=== PATIENT | female | born 1970 | race Caucasian/White ===

== ENCOUNTER 2017-04-23 15:41 | Emergency (ER) | payer OTHER ==
[2017-04-23] MEDS ORDERED: SODIUM CHLORIDE 0.9% 1,000 ML IV ONE (16:12)
[2017-04-23] MEDS ORDERED: ONDANSETRON 4 MG/2 ML VIAL IVP STA (16:12)
[2017-04-23] MEDS ORDERED: chlordiazePOXIDE 25 MG CAPSULE PO STA (16:13)
[2017-04-23] MEDS ORDERED: LORazepam 2 MG/ML VIAL IVP STA (16:13)
[2017-04-23] MEDS ORDERED: THIAMINE 100 MG TABLET PO STA (16:13)
[2017-04-23] MEDS ORDERED: FOLIC ACID 1 MG TABLET PO STA (16:13)
--- NOTE | 2017-04-23 17:27 | ED Physician Documentation ---
History of Present Illness - Stated complaint Stated Complaint: ALCOHOL WITHDRAWL - Chief complaint Chief Complaint: Abd Pain - History obtained from History obtained from: Patient - History of Present Illness Timing: Today - Additonal information Additional information: Patient is a 47 year old female with a history of alcohol abuse who is presenting to the emergency department for alcohol withdrawal. patient states that for the last 8 days she has been drinking excessively, normally a pint of vodka and 4 large beers. patient sates that she wants to quit drinking and last had a drink about 24 hours ago. Patient reports, that she felt shakey, weak and nauseated. Review of Systems Constitutional: denies: Fever, Chills Eyes: denies: Decreased vision, Photophobia Ears: denies: Ear pain, Drainage/discharge Nose: reports: Reviewed and negative Throat: reports: Reviewed and negative Cardiac: denies: Chest pain / pressure, Palpitations, Calf pain Respiratory: denies: Dyspnea, Cough, Wheezing GI: reports: Nausea. 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 - Present Medications Home Medications: Ambulatory Orders Medication Instructions Recorded Confirmed Bupropion HCl [Bupropion HCl Sr] 150 mg PO BID 07/20/15 04/23/17 Lorazepam [Ativan] 1 mg PO Q6H PRN #10 tablet 04/23/17 Ondansetron [Ondansetron Odt] 4 mg PO Q8H PRN #20 tab.rapdis 04/23/17 chlordiazePOXIDE [Librium] 25 mg PO Q6H #20 capsule 04/23/17 - Allergies Allergies/Adverse Reactions: Allergies Allergy/AdvReac Type Severity Reaction Status Date / Time No Known Drug Allergies Allergy Verified 04/23/17 15:49 - Social History Does the pt smoke?: No Smoking Status: Former smoker Does the pt drink ETOH?: Yes ETOH Use: Liquor Does the pt have substance abuse?: No - Immunizations Immunizations are current?: Yes PD ED PE NORMAL - Vitals Vital signs reviewed: Yes - General General: Alert and oriented X 3, Well developed/nourished - HEENT HEENT: Atraumatic, PERRL, Moist mucous membranes - Neck Neck: Supple, no meningeal sign, No JVD - Cardiac Cardiac: RRR, No murmur - Respiratory Respiratory: No respiratory distress, Clear bilaterally - Abdomen Abdomen: Soft, Non tender, Non distended - Derm Derm: Normal color, Warm and dry, No rash - Extremities Extremities: No deformity - Neuro Neuro: Other (minimal tremor) Results - Vitals Vitals: Vital Signs - 24 hr 04/23/17 04/23/17 15:44 17:48 Temperature 36.2 C L Heart Rate 81 80 Respiratory 18 16 Rate Blood Pressure 128/87 H 132/89 H O2 Saturation 99 100 Oxygen O2 Source Room air PD MEDICAL DECISION MAKING - ED course Complexity details: reviewed old records, reviewed results, re-evaluated patient , considered differential, d/w patient ED course: Patient was seen and examined at bedside. Patient's vital signs were within normal limits and there was minimal shaking. IV access was gained and patient was treated with IV fluids, ativan, librium, thiamine and folic acid. Patient responded well to the therapy. Patient had low CIWA score. A lengthy discussion was had with the patient and family concerning rehab and return instructions. Information was given for rehab. Patient and family felt comfortable with discharge and follow up planning. Patient was stable for discharge with outpatient follow up. Departure - Departure Disposition: 01 Home, Self Care Clinical Impression: Alcohol withdrawal Condition: Good Instructions: ED Withdrawal Alcohol Follow-Up: Fiordaliza Mckeon DO [Primary Care Provider] - Within 3 Days Prescriptions: chlordiazePOXIDE [Librium] 25 mg PO Q6H #20 capsule Lorazepam [Ativan] 1 mg PO Q6H PRN #10 tablet PRN Reason: Alcohol Withdrawal Ondansetron [Ondansetron Odt] 4 mg PO Q8H PRN #20 tab.rapdis PRN Reason: Nausea / Vomiting Comments: Your symptoms today are being caused by alcohol withdrawal. You will need to take the librium every 6 hours and then you can take the ativan in between for withdrawal symptoms. You should try to stay well hydrated and eat a regular diet. YOu should contact the detox center to establish inpatient care. If you are unable to get inpatient care or your symptoms worsen you may return to the emergency department at any time for new, worsening or uncontrollable symptoms. Discharge Date/Time: 04/23/17 17:49
[2017-04-23 17:49] VITALS: BP 132/89
== END 2017-04-23 17:49 | disposition home or self-care (01) ==
LOC: ED 15:41
DX: F10.239 Alcohol dependence with withdrawal, unspecified (principal)
CPT/HCPCS: 96361; 96374; 96375; 99283; 99284; A9270; J2060

== ENCOUNTER 2017-04-24 17:07 | Outpatient (CLI) | payer OTHER ==
[2017-04-24 18:50] LABS: BASOPHILS # (AUTO) 0.1 10^3/uL (0.0-0.1); BASOPHILS % (AUTO) 1.1 %; EOSINOPHILS # (AUTO) 0.1 10^3/uL (0.0-0.7); EOSINOPHILS % (AUTO) 1.3 %; HCT - HEMATOCRIT 40.3 % (37.0-47.0); HGB - HEMOGLOBIN 13.8 g/dL (12.0-16.0); LYMPHOCYTES # (AUTO) 1.6 10^3/uL (1.5-3.5); LYMPHOCYTES % (AUTO) 24.1 %; MEAN CORPUSCULAR HGB CONC 34.3 g/dL (32.0-36.0); MEAN CORPUSCULAR VOLUME 98.9 fL (81.0-99.0); MEAN PLATELET VOLUME 8.1 fL (7.9-10.8); MONOCYTES # (AUTO) 0.6 10^3/uL (0.0-1.0); MONOCYTES % (AUTO) 8.8 %; NEUTROPHILS # (AUTO) 4.3 10^3/uL (1.5-6.6); NEUTROPHILS % (AUTO) 64.7 %; RED BLOOD COUNT 4.07 10^6/uL (4.20-5.40); RED CELL DISTRIBUTION WIDTH 12.8 % (12.0-15.0); UNCORRECTED WHITE BLOOD COUNT 6.7 x10^3/uL; WHITE BLOOD COUNT 6.7 x10^3/uL (4.8-10.8)
[2017-04-24 19:02] LABS: BILIRUBIN,TOTAL 1.2 mg/dL (0.2-1.0); CALCIUM 9.6 mg/dL (8.5-10.3); CREATININE 0.6 mg/dL (0.4-1.0); POTASSIUM 3.3 mmol/L (3.5-5.0); TOTAL PROTEIN 6.7 g/dL (6.7-8.2)
== END 2017-04-24 17:08 | disposition home or self-care (01) ==
LOC: LAB.R 17:07
PROVIDERS: ATTEND Physician Assistant Medical
DX: F10.20 Alcohol dependence, uncomplicated (principal)
CPT/HCPCS: 80053; 85025

== ENCOUNTER 2017-06-26 16:56 | Outpatient (CLI) | payer OTHER | END 2017-06-26 16:57 | disposition critical access hospital (66) | LOC: EMS 16:56 | PROVIDERS: ATTEND Surgery | DX: R26.2 Difficulty in walking, not elsewhere classified (principal) | CPT/HCPCS: A0425; A0429 ==

== ENCOUNTER 2017-06-26 17:12 | Emergency (ER) | payer OTHER ==
--- NOTE | 2017-06-26 17:32 | ED Physician Documentation ---
History of Present Illness - Stated complaint Stated Complaint: OD - Chief complaint Chief Complaint: General - History obtained from History obtained from: Patient, EMS - History of Present Illness Timing: Today (She and her boyfriend (?) were kicked out of [employer] for shopliting and acting funny in the parking lot. Her friend says using suboxone. She is altered and not a useful historian. 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 - Present Medications Home Medications: Ambulatory Orders Medication Instructions Recorded Confirmed Bupropion HCl [Bupropion HCl Sr] 150 mg PO BID 07/20/15 04/23/17 Lorazepam [Ativan] 1 mg PO Q6H PRN #10 tablet 04/23/17 Ondansetron [Ondansetron Odt] 4 mg PO Q8H PRN #20 tab.rapdis 04/23/17 chlordiazePOXIDE [Librium] 25 mg PO Q6H #20 capsule 04/23/17 - Allergies Allergies/Adverse Reactions: Allergies Allergy/AdvReac Type Severity Reaction Status Date / Time No Known Drug Allergies Allergy Verified 04/23/17 15:49 - Social History Does the pt smoke?: No Smoking Status: Never smoker Does the pt drink ETOH?: Yes Does the pt have substance abuse?: No - Immunizations Immunizations are current?: Yes - POLST Patient has POLST: No PD ED PE NORMAL - Vitals Vital signs reviewed: Yes - General General: Other (Somnolent, arousable, NAD) - HEENT HEENT: Other (Small pupils.) - Neck Neck: Supple, no meningeal sign, No bony TTP - Cardiac Cardiac: RRR, No murmur - Respiratory Respiratory: No respiratory distress, Clear bilaterally - Abdomen Abdomen: Normal bowel sounds, Soft, Non tender - Back Back: No CVA TTP, No spinal TTP - Derm Derm: Normal color, Warm and dry - 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 Eye Opening: To Voice Motor: Obeys Commands Verbal: Confused GCS Score: 13 Results - Vitals Vitals: Vital Signs - 24 hr 06/26/17 17:20 Temperature 37.4 C Heart Rate 104 H Respiratory 22 Rate Blood Pressure 137/87 H O2 Saturation 96 Oxygen O2 Source Room air - Labs Labs: Laboratory Tests 06/26/17 06/26/17 06/26/17 17:35 17:35 17:35 WBC 4.8 RBC 3.92 L Hgb 13.0 Hct 38.1 MCV 97.1 MCH 33.0 H MCHC 34.0 RDW 13.3 Plt Count 385 MPV 6.9 L Neut # 2.0 Lymph # 2.4 [place] # 0.3 Eos # 0.0 Baso # 0.1 Absolute Nucleated RBC 0.00 Nucleated RBC % 0.1 Sodium 143 Potassium 3.6 Chloride 108 Carbon Dioxide 19 L Anion Gap 16.0 H BUN 12 Creatinine 0.7 Estimated GFR (MDRD) 90 Glucose 129 H Calcium 8.3 L Total Bilirubin 0.5 AST 48 H ALT 27 Alkaline Phosphatase 76 Total Protein 7.2 Albumin 4.5 Globulin 2.7 Albumin/Globulin Ratio 1.7 Lipase 13 L HCG, Quant < 0.60 Urine Color Urine Clarity Urine pH Ur Specific [place] Urine Protein Urine Glucose (UA) Urine Ketones Urine Occult Blood Urine Nitrite Urine Bilirubin Urine Urobilinogen Ur Leukocyte Esterase Urine RBC Urine WBC Ur Squamous Epith Cells Urine Bacteria Ur Microscopic Review Urine Culture Comments Salicylates < 6.0 Urine Opiates Screen Ur Oxycodone Screen Urine Methadone Screen Ur Propoxyphene Screen Acetaminophen < 10 L Ur Barbiturates Screen Ur Tricyclics Screen Ur Phencyclidine Scrn Ur Amphetamine Screen U Methamphetamines Scrn U Benzodiazepines Scrn Urine Cocaine Screen U Cannabinoids Screen Ethyl Alcohol 230.6 06/26/17 19:00 WBC RBC Hgb Hct MCV MCH MCHC RDW Plt Count MPV Neut # Lymph # [place] # Eos # Baso # Absolute Nucleated RBC Nucleated RBC % Sodium Potassium Chloride Carbon Dioxide Anion Gap BUN Creatinine Estimated GFR (MDRD) Glucose Calcium Total Bilirubin AST ALT Alkaline Phosphatase Total Protein Albumin Globulin Albumin/Globulin Ratio Lipase HCG, Quant Urine Color YELLOW Urine Clarity HAZY Urine pH 5.5 Ur Specific [place] >=1.030 H Urine Protein NEGATIVE Urine Glucose (UA) NEGATIVE Urine Ketones NEGATIVE Urine Occult Blood SMALL H Urine Nitrite NEGATIVE Urine Bilirubin NEGATIVE Urine Urobilinogen 0.2 (NORMAL) Ur Leukocyte Esterase NEGATIVE Urine RBC 0-5 Urine WBC 0-3 Ur Squamous Epith Cells MOD Squamous H Urine Bacteria Few Ur Microscopic Review INDICATED Urine Culture Comments NOT INDICATED Salicylates Urine Opiates Screen NEGATIVE Ur Oxycodone Screen NEGATIVE Urine Methadone Screen NEGATIVE Ur Propoxyphene Screen NEGATIVE Acetaminophen Ur Barbiturates Screen NEGATIVE Ur Tricyclics Screen NEGATIVE Ur Phencyclidine Scrn NEGATIVE Ur Amphetamine Screen NEGATIVE U Methamphetamines Scrn NEGATIVE U Benzodiazepines Scrn POSITIVE H Urine Cocaine Screen NEGATIVE U Cannabinoids Screen NEGATIVE Ethyl Alcohol PD MEDICAL DECISION MAKING - ED course ED course: 47-year-old woman presents with altered mental status from a grocery store, her mental status rapidly cleared to normal here. She was found to have alcohol and benzodiazepines on board. She was ambulate in the hallway without ataxia. She was coherent. Departure - Departure Disposition: Home, Self Care Clinical Impression: Alcohol intoxication Qualifiers: Complication of substance-induced condition: uncomplicated Qualified Code(s): F10.920 - Alcohol use, unspecified with intoxication, uncomplicated Condition: Good Record reviewed to determine appropriate education?: Yes Instructions: ED Alcohol Intoxication Comments: Call your doctor to arrange a follow-up appointment, make the next available appointment. In the interim, return anytime if worse or if new symptoms develop. Your blood pressure was elevated today on check into the emergency department. This does not mean that you have hypertension, it is a common phenomenon to come to the emergency department and have elevated blood pressure. I recommend that you see your primary care physician within the week to have it rechecked when you are feeling better.
[2017-06-26 17:40] LABS: BASOPHILS # (AUTO) 0.1 10^3/uL (0.0-0.1); BASOPHILS % (AUTO) 2.7 %; EOSINOPHILS % (AUTO) 0.6 %; LYMPHOCYTES # (AUTO) 2.4 10^3/uL (1.5-3.5); LYMPHOCYTES % (AUTO) 50.2 %; MEAN CORPUSCULAR VOLUME 97.1 fL (81.0-99.0); MEAN PLATELET VOLUME 6.9 fL (7.9-10.8); MONOCYTES # (AUTO) 0.3 10^3/uL (0.0-1.0); MONOCYTES % (AUTO) 5.4 %; NEUTROPHILS % (AUTO) 41.1 %; PLT - PLATELET COUNT 385 10^3/uL (130-450); RED BLOOD COUNT 3.92 10^6/uL (4.20-5.40); RED CELL DISTRIBUTION WIDTH 13.3 % (12.0-15.0); WHITE BLOOD COUNT 4.8 x10^3/uL (4.8-10.8)
[2017-06-26 17:55] LABS: ALBUMIN 4.5 g/dL (3.2-5.5); ALBUMIN/GLOBULIN RATIO 1.7 (1.0-2.2); ALKALINE PHOSPHATASE 76 IU/L (42-121); ALT ALANINE AMINOTRANSFERASE 27 IU/L (10-60); AST ASPARTATE AMINOTRANSFERASE 48 IU/L (10-42); BILIRUBIN,TOTAL 0.5 mg/dL (0.2-1.0); BUN - BLOOD UREA NITROGEN 12 mg/dL (6-20); CALCIUM 8.3 mg/dL (8.5-10.3); CARBON DIOXIDE - CO2 19 mmol/L (21-32); CHLORIDE 108 mmol/L (101-111); CREATININE 0.7 mg/dL (0.4-1.0); GFR - MDRD 90 (>89); GLUCOSE 129 mg/dL (70-100); LIPASE 13 U/L (22-51); SALICYLATE < 6.0 mg/dL; SODIUM 143 mmol/L (135-145); TOTAL PROTEIN 7.2 g/dL (6.7-8.2)
[2017-06-26 17:56] LABS: ACETAMINOPHEN < 10 ug/mL (10-30)
[2017-06-26 19:08] LABS: MUDS CUTOFF CONCENTRATIONS CUTOFF CONC BELOW:
[2017-06-26 19:14] LABS: BILIRUBIN,URINE NEGATIVE (NEGATIVE); GLUCOSE, URINE (UA) NEGATIVE (NEGATIVE); KETONES,URINE (UA) NEGATIVE (NEGATIVE); LEUKOCYTE ESTERASE, URINE NEGATIVE (NEGATIVE); NITRITE,URINE NEGATIVE (NEGATIVE); OCCULT BLOOD,URINE SMALL (NEGATIVE); PH,URINE 5.5 PH (5.0-7.5); PROTEIN,URINE NEGATIVE (NEGATIVE); UROBILINOGEN,URINE 0.2 (NORMAL) E.U./dL (NORMAL)
[2017-06-26 19:26] LABS: CLARITY,URINE HAZY (CLEAR); COCAINE SCREEN URINE NEGATIVE (NEGATIVE); METHAMPHETAMINES SCREEN, URINE NEGATIVE (NEGATIVE); OPIATE SCREEN, URINE NEGATIVE (NEGATIVE)
[2017-06-26 19:27] LABS: AMPHETAMINE SCREEN,URINE NEGATIVE (NEGATIVE); BENZODIAZEPINES SCREEN, URINE POSITIVE (NEGATIVE)
[2017-06-26 19:28] LABS: METHADONE SCREEN, URINE NEGATIVE (NEGATIVE); OXYCODONE SCREEN, URINE NEGATIVE (NEGATIVE); PROPOXYPHENE SCREEN, URINE NEGATIVE (NEGATIVE); TRICYCLIC ANTIDEPRESSANT,URINE NEGATIVE (NEGATIVE)
[2017-06-26 19:35] LABS: BACTERIA,URINE Few /HPF (None Seen); RBC,URINE 0-5 /HPF (0-5); SQUAMOUS EPITHELIAL CELL,UR MOD Squamous (<= Few)
[2017-06-26 20:36] VITALS: BP 119/84
[2017-06-26] MEDS ORDERED: ONDANSETRON ODT 4 MG TABLET TL STA (20:38)
== END 2017-06-26 20:43 | disposition home or self-care (01) ==
LOC: EDUNIT# → SUPCPDRO 17:12 → ED 17:12
DX: F10.920 Alcohol use, unspecified with intoxication, uncomplicated (principal); R03.0 Elevated blood-pressure reading, without diagnosis of hypertension
CPT/HCPCS: 36415; 80053; 80306; 80307; 80320; 80329; 81001; 83690; 84702; 85025; 99283; Q0162; 81003; 87086

== ENCOUNTER 2017-11-22 20:00 | Emergency (ER) | payer OTHER ==
--- NOTE | 2017-11-22 20:33 | ED Physician Documentation ---
PD HPI MHE - Stated complaint Stated Complaint: SI - Chief complaint Chief Complaint: MHE - History obtained from History obtained from: Patient, Family (patient's aunt (at bedside in ED)) - History of Present Illness Primary symptom: Suicidal ideation, Depression, Off meds Pain level now: 8 (headache) Contributing factors: Family (going through a divorce), Substance abuse - ETOH - Additional information Additional information: presents at urging of her aunt. patient is an alcoholic, cannot remember the last time she had 24 hours or more of sobriety (she says months, maybe years). Last drink was approximately 30 minutes prior to arrival tonight. She says she is feeling suicidal and has multiple plans as to how she would carry this out. also c/o generalized headache, which she says is c/w previous migraine headaches. she says she is not taking any prescription medications since 2017 because "I just don't care any more". Review of Systems Constitutional: reports: Reviewed and negative Cardiac: reports: Reviewed and negative Respiratory: reports: Reviewed and negative GI: reports: Reviewed and negative Neurologic: reports: Headache. 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 - Present Medications Home Medications: Ambulatory Orders Medication Instructions Recorded Confirmed Bupropion HCl [Bupropion HCl Sr] 150 mg PO BID 07/20/15 04/23/17 Lorazepam [Ativan] 1 mg PO Q6H PRN #10 tablet 04/23/17 Ondansetron [Ondansetron Odt] 4 mg PO Q8H PRN #20 tab.rapdis 04/23/17 chlordiazePOXIDE [Librium] 25 mg PO Q6H #20 capsule 04/23/17 Sertraline [Zoloft] 50 mg PO DAILY 11/22/17 11/22/17 chlordiazePOXIDE [Librium] 25 mg PO Q6H PRN #20 capsule 11/23/17 - Allergies Allergies/Adverse Reactions: Allergies Allergy/AdvReac Type Severity Reaction Status Date / Time No Known Drug Allergies Allergy Verified 11/22/17 20:15 - Social History Does the pt smoke?: No Smoking Status: Never smoker Does the pt drink ETOH?: Yes Does the pt have substance abuse?: No - Immunizations Immunizations are current?: Yes - POLST Patient has POLST: No PD ED PE NORMAL - Vitals Vital signs reviewed: Yes - General General: Alert and oriented X 3, Well developed/nourished, Other (wearing sunglasses in dark room. awake, alert, cooperative. answers quickly and appropriately. 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, No motor deficit, No sensory deficit, Normal speech Eye Opening: Spontaneous Motor: Obeys Commands Verbal: Oriented GCS Score: 15 Results - Vitals Vitals: Vital Signs - 24 hr 11/22/17 11/22/17 11/23/17 20:05 23:21 06:36 Temperature 36.4 C L 36.5 C 36.7 C Heart Rate 88 82 73 Respiratory 16 16 Rate Blood Pressure 118/92 H 112/72 125/75 O2 Saturation 97 96 97 11/23/17 11/23/17 10:59 13:09 Temperature 36.4 C L 36.0 C L Heart Rate 83 83 Respiratory 15 18 Rate Blood Pressure 141/85 H 148/95 H O2 Saturation 98 98 Oxygen O2 Source Room air - Labs Labs: Laboratory Tests 11/22/17 11/22/17 11/22/17 20:30 20:43 20:43 WBC 3.6 L RBC 3.91 L Hgb 13.8 Hct 40.4 MCV 103.3 H MCH 35.2 H MCHC 34.1 RDW 12.9 Plt Count 187 MPV 7.9 Neut # (Auto) 1.4 L Lymph # (Auto) 1.7 [place] # (Auto) 0.3 Eos # (Auto) 0.1 Baso # (Auto) 0.1 Absolute Nucleated RBC 0.01 Nucleated RBC % 0.2 Sodium 137 Potassium 4.0 Chloride 103 Carbon Dioxide 23 Anion Gap 11.0 BUN 6 Creatinine 0.7 Estimated GFR (MDRD) 90 Glucose 159 H Calcium 8.8 Total Bilirubin 1.0 AST 125 H ALT 68 H Alkaline Phosphatase 119 Total Protein 7.2 Albumin 4.2 Globulin 3.0 Albumin/Globulin Ratio 1.4 Lipase 52 H Urine Color YELLOW Urine Clarity CLEAR Urine pH 5.5 Ur Specific [place] 1.010 Urine Protein NEGATIVE Urine Glucose (UA) NEGATIVE Urine Ketones NEGATIVE Urine Occult Blood TRACE-LYSE Urine Nitrite NEGATIVE Urine Bilirubin NEGATIVE Urine Urobilinogen 0.2 (NORMAL) Ur Leukocyte Esterase NEGATIVE Ur Microscopic Review NOT INDICATED Urine Culture Comments NOT INDICATED Urine HCG, Qual NEGATIVE Salicylates < 6.0 Urine Opiates Screen NEGATIVE Ur Oxycodone Screen NEGATIVE Urine Methadone Screen NEGATIVE Ur Propoxyphene Screen NEGATIVE Acetaminophen < 10 L Ur Barbiturates Screen NEGATIVE Ur Tricyclics Screen NEGATIVE Ur Phencyclidine Scrn NEGATIVE Ur Amphetamine Screen NEGATIVE U Methamphetamines Scrn NEGATIVE U Benzodiazepines Scrn NEGATIVE Urine Cocaine Screen NEGATIVE U Cannabinoids Screen NEGATIVE Ethyl Alcohol 330.8 11/23/17 07:28 WBC RBC Hgb Hct MCV MCH MCHC RDW Plt Count MPV Neut # (Auto) Lymph # (Auto) [place] # (Auto) Eos # (Auto) Baso # (Auto) Absolute Nucleated RBC Nucleated RBC % Sodium Potassium Chloride Carbon Dioxide Anion Gap BUN Creatinine Estimated GFR (MDRD) Glucose Calcium Total Bilirubin AST ALT Alkaline Phosphatase Total Protein Albumin Globulin Albumin/Globulin Ratio Lipase Urine Color Urine Clarity Urine pH Ur Specific [place] Urine Protein Urine Glucose (UA) Urine Ketones Urine Occult Blood Urine Nitrite Urine Bilirubin Urine Urobilinogen Ur Leukocyte Esterase Ur Microscopic Review Urine Culture Comments Urine HCG, Qual Salicylates Urine Opiates Screen Ur Oxycodone Screen Urine Methadone Screen Ur Propoxyphene Screen Acetaminophen Ur Barbiturates Screen Ur Tricyclics Screen Ur Phencyclidine Scrn Ur Amphetamine Screen U Methamphetamines Scrn U Benzodiazepines Scrn Urine Cocaine Screen U Cannabinoids Screen Ethyl Alcohol 20.3 PD MEDICAL DECISION MAKING - ED course Complexity details: reviewed results, re-evaluated patient, considered differential, d/w patient, d/w family ED course: Case signed out/turned over to Dr. Figueroa at 7 AM 11/23, as patient is awaiting evaluation. - Sepsis Event Vital Signs: Vital Signs - 24 hr 11/22/17 11/22/17 11/23/17 20:05 23:21 06:36 Temperature 36.4 C L 36.5 C 36.7 C Heart Rate 88 82 73 Respiratory 16 16 Rate Blood Pressure 118/92 H 112/72 125/75 O2 Saturation 97 96 97 11/23/17 11/23/17 10:59 13:09 Temperature 36.4 C L 36.0 C L Heart Rate 83 83 Respiratory 15 18 Rate Blood Pressure 141/85 H 148/95 H O2 Saturation 98 98 Oxygen O2 Source Room air Departure - Departure Disposition: 01 Home, Self Care Clinical Impression: Suicidal ideation Alcohol intoxication Qualifiers: Complication of substance-induced condition: uncomplicated Qualified Code(s): F10.920 - Alcohol use, unspecified with intoxication, uncomplicated Condition: Good Instructions: ED Alcohol Intoxication Follow-Up: Fiordaliza Mckeon DO [Primary Care Provider] - Within 3 Days Prescriptions: chlordiazePOXIDE [Librium] 25 mg PO Q6H PRN #20 capsule PRN Reason: Alcohol Withdrawal Comments: Continue your medications as prescribed at home. Return if you worsen. Crisis Line and is available to talk to someone [email or web address] is also available to chat with someone online if you prefer. There are also many resources on this website and apps for your phone to help with your mental health You can also text the word START to [phone] to chat with someome via text. Discharge Date/Time: 11/23/17 13:10
[2017-11-22 20:43] LABS: MUDS CUTOFF CONCENTRATIONS CUTOFF CONC BELOW:
[2017-11-22 20:47] LABS: BILIRUBIN,URINE NEGATIVE (NEGATIVE); GLUCOSE, URINE (UA) NEGATIVE (NEGATIVE); KETONES,URINE (UA) NEGATIVE (NEGATIVE); LEUKOCYTE ESTERASE, URINE NEGATIVE (NEGATIVE); NITRITE,URINE NEGATIVE (NEGATIVE); OCCULT BLOOD,URINE TRACE-LYSE (NEGATIVE); PH,URINE 5.5 PH (5.0-7.5); PROTEIN,URINE NEGATIVE (NEGATIVE); UROBILINOGEN,URINE 0.2 (NORMAL) E.U./dL (NORMAL)
[2017-11-22 20:48] LABS: CLARITY,URINE CLEAR (CLEAR); HCG UR QUAL NEGATIVE
[2017-11-22] MEDS ORDERED: LORazepam 2 MG/ML VIAL IVP STA (20:50)
[2017-11-22] MEDS ORDERED: KETOROLAC 30 MG/ML VIAL IVP STA (20:50)
[2017-11-22] MEDS ORDERED: SODIUM CHLORIDE 0.9% 1,000 ML IV STA ×2 (20:50→23:07)
[2017-11-22 20:53] LABS: BASOPHILS # (AUTO) 0.1 10^3/uL (0.0-0.1); EOSINOPHILS # (AUTO) 0.1 10^3/uL (0.0-0.7); EOSINOPHILS % (AUTO) 1.6 %; HGB - HEMOGLOBIN 13.8 g/dL (12.0-16.0); LYMPHOCYTES # (AUTO) 1.7 10^3/uL (1.5-3.5); LYMPHOCYTES % (AUTO) 47.9 %; MEAN CORPUSCULAR HEMOGLOBIN 35.2 pg (27.0-31.0); MEAN CORPUSCULAR HGB CONC 34.1 g/dL (32.0-36.0); MEAN CORPUSCULAR VOLUME 103.3 fL (81.0-99.0); MEAN PLATELET VOLUME 7.9 fL (7.9-10.8); MONOCYTES # (AUTO) 0.3 10^3/uL (0.0-1.0); MONOCYTES % (AUTO) 9.5 %; NEUTROPHILS # (AUTO) 1.4 10^3/uL (1.5-6.6); PLT - PLATELET COUNT 187 10^3/uL (130-450); RED BLOOD COUNT 3.91 10^6/uL (4.20-5.40); RED CELL DISTRIBUTION WIDTH 12.9 % (12.0-15.0); WHITE BLOOD COUNT 3.6 x10^3/uL (4.8-10.8)
[2017-11-22 20:58] LABS: AMPHETAMINE SCREEN,URINE NEGATIVE (NEGATIVE); BENZODIAZEPINES SCREEN, URINE NEGATIVE (NEGATIVE); COCAINE SCREEN URINE NEGATIVE (NEGATIVE); METHADONE SCREEN, URINE NEGATIVE (NEGATIVE); METHAMPHETAMINES SCREEN, URINE NEGATIVE (NEGATIVE); OPIATE SCREEN, URINE NEGATIVE (NEGATIVE); OXYCODONE SCREEN, URINE NEGATIVE (NEGATIVE); PROPOXYPHENE SCREEN, URINE NEGATIVE (NEGATIVE); TRICYCLIC ANTIDEPRESSANT,URINE NEGATIVE (NEGATIVE)
[2017-11-22 21:05] LABS: ALBUMIN 4.2 g/dL (3.2-5.5); ALBUMIN/GLOBULIN RATIO 1.4 (1.0-2.2); ALKALINE PHOSPHATASE 119 IU/L (42-121); ALT ALANINE AMINOTRANSFERASE 68 IU/L (10-60); AST ASPARTATE AMINOTRANSFERASE 125 IU/L (10-42); BUN - BLOOD UREA NITROGEN 6 mg/dL (6-20); CALCIUM 8.8 mg/dL (8.5-10.3); CARBON DIOXIDE - CO2 23 mmol/L (21-32); CHLORIDE 103 mmol/L (101-111); CREATININE 0.7 mg/dL (0.4-1.0); GFR - MDRD 90 (>89); GLUCOSE 159 mg/dL (70-100); LIPASE 52 U/L (22-51); SALICYLATE < 6.0 mg/dL; SODIUM 137 mmol/L (135-145); TOTAL PROTEIN 7.2 g/dL (6.7-8.2)
[2017-11-22 21:07] LABS: ACETAMINOPHEN < 10 ug/mL (10-30)
[2017-11-22] MEDS ORDERED: PROMETHAZINE INJ 25 MG in SODIUM CHLORIDE 0.9% 50 ML IV STA (23:07)
[2017-11-22] MEDS ORDERED: MORPHINE 2 MG/ML SYRINGE IVP STA (23:07)
[2017-11-23] MEDS ORDERED: LORazepam 2 MG/ML VIAL IVP STA (06:48)
--- NOTE | 2017-11-23 12:38 | ED Physician Documentation ---
ED Addendum - Addendum Addendum: 11/23/17 12:36 Patient created safety plan with social work. Has good social support and will refrain from etoh. She currently is not feeling suicidal. Has a friend with her in the emergency department. We will prescribe her a small amount of Librium as she has been drinking heavily for the past several weeks. No history of delirium tremens. Patient is comfortable going home at this time and does contract for safety. Patient counseled regarding signs and symptoms for which I believe and urgent re-evaluation would be necessary. Patient with good understanding of and agreement to plan and is comfortable going home at this time This document was made in part using voice recognition software. While efforts are made to proofread this document, sound alike and grammatical errors may occur. Departure - Departure Disposition: 01 Home, Self Care Clinical Impression: Suicidal ideation Alcohol intoxication Qualifiers: Complication of substance-induced condition: uncomplicated Qualified Code(s): F10.920 - Alcohol use, unspecified with intoxication, uncomplicated Condition: Good Instructions: ED Alcohol Intoxication Follow-Up: Fiordaliza Mckeon DO [Primary Care Provider] - Within 3 Days Prescriptions: chlordiazePOXIDE [Librium] 25 mg PO Q6H PRN #20 capsule PRN Reason: Alcohol Withdrawal Comments: Continue your medications as prescribed at home. Return if you worsen. Crisis Line and is available to talk to someone [email or web address] is also available to chat with someone online if you prefer. There are also many resources on this website and apps for your phone to help with your mental health You can also text the word START to [phone] to chat with someome via text. Discharge Date/Time: 11/23/17 13:10
[2017-11-23 13:10] VITALS: BP 148/95
== END 2017-11-23 13:10 | disposition home or self-care (01) ==
LOC: ED 20:00
DX: F10.920 Alcohol use, unspecified with intoxication, uncomplicated (principal); R45.851 Suicidal ideations
CPT/HCPCS: 80053; 80306; 80307; 80320; 80329; 81003; 81025; 83690; 85025; 96361; 96365; 96375; 96376; 99284; J2060; J2270; J7040; 36415; 81001; 87086

== ENCOUNTER 2017-12-22 07:29 | Outpatient (CLI) | payer OTHER | END 2017-12-22 07:30 | disposition critical access hospital (66) | LOC: EMS 07:29 | PROVIDERS: ATTEND Surgery | DX: R10.30 Lower abdominal pain, unspecified (principal) | CPT/HCPCS: A0425; A0427 ==

== ENCOUNTER 2017-12-22 07:48 | Inpatient (IN) | payer OTHER ==
--- NOTE | 2017-12-22 07:52 | ED Physician Documentation ---
PD HPI ABD PAIN - Stated complaint Stated Complaint: ABD PX - History of Present Illness Timing - onset: Last night Timing - duration: Hours (8-10) Timing - details: Abrupt onset, Still present Quality: Aching, Sharp, Pain Location: RUQ, Epigastric Radiation: Upper back Improved by: Position (sitting up). No: Vomiting Worsened by: Eating, Breathing, Position, Palpation Associated symptoms: Nausea, Vomiting, Loss of appetite. No: Fever, Hematemesis , Diarrhea, Constipation, Melena, Near syncope / syncope Similar symptoms before: Has not had sx before Recently seen: Not recently seen Review of Systems Constitutional: denies: Fever, Chills, Myalgias Nose: denies: Rhinorrhea / runny nose, Congestion Throat: denies: Dental pain / toothache, Sore throat Cardiac: denies: Chest pain / pressure, Palpitations Respiratory: denies: Dyspnea, Cough, Wheezing GI: reports: Abdominal Pain, Nausea, Vomiting. denies: Abdominal Swelling, Constipation, Diarrhea, Bloody / black stool : denies: Dysuria, Frequency Skin: denies: Rash, Lesions Musculoskeletal: denies: Extremity swelling Neurologic: reports: Generalized weakness. 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 - Present Medications Home Medications: Ambulatory Orders Medication Instructions Recorded Confirmed Bupropion HCl [Bupropion HCl Sr] 150 mg PO BID 07/20/15 04/23/17 Sertraline [Zoloft] 50 mg PO DAILY 11/22/17 12/22/17 - Allergies Allergies/Adverse Reactions: Allergies Allergy/AdvReac Type Severity Reaction Status Date / Time No Known Drug Allergies Allergy Verified 11/22/17 20:15 - Social History Does the pt smoke?: No Smoking Status: Never smoker Does the pt drink ETOH?: Yes ETOH Use: Other (regular daily alcohol use) Does the pt have substance abuse?: No - Family History Family history: reports: Non contributory - Immunizations Immunizations are current?: Yes - POLST Patient has POLST: No PD ED PE NORMAL - Vitals Vital signs reviewed: Yes - General General: Alert and oriented X 3, Well developed/nourished, Other (appears in pain; slightly shaky.) - HEENT HEENT: PERRL (nonicteric), Pharynx benign - Neck Neck: Supple, no meningeal sign, No adenopathy - Cardiac Cardiac: RRR, No murmur - Respiratory Respiratory: Clear bilaterally - Abdomen Abdomen: Soft, Non distended, Other (liver slightly enlarged to palpation. Marked tenderness upper abd/epigastric area. Guarding and percussion tenderness present. ) - Female Female : Deferred - Rectal Rectal: Deferred - Back Back: No CVA TTP - Derm Derm: Normal color, Warm and dry - Extremities Extremities: No edema, No calf tenderness / cord - Neuro Neuro: Alert and oriented X 3, No motor deficit, Normal speech Results - Vitals Vitals: Vital Signs - 24 hr 12/22/17 12/22/17 07:50 09:28 Temperature 36.4 C L Heart Rate 64 66 Respiratory 18 20 Rate Blood Pressure 111/79 112/81 H O2 Saturation 100 100 Oxygen O2 Source Room air - Labs Labs: Laboratory Tests 12/22/17 12/22/17 12/22/17 08:04 08:12 08:12 WBC 9.3 RBC 3.75 L Hgb 13.2 Hct 37.7 MCV 100.7 H MCH 35.3 H MCHC 35.1 RDW 12.8 Plt Count 229 MPV 7.9 Neut # (Auto) 7.8 H Lymph # (Auto) 0.9 L [place] # (Auto) 0.5 Eos # (Auto) 0.0 Baso # (Auto) 0.1 Absolute Nucleated RBC 0.00 Nucleated RBC % 0.0 Sodium 136 Potassium 3.4 L Chloride 97 L Carbon Dioxide 29 Anion Gap 10.0 BUN 6 Creatinine 0.5 Estimated GFR (MDRD) 133 Glucose 157 H Calcium 8.5 Total Bilirubin 0.8 AST 68 H ALT 77 H Alkaline Phosphatase 98 Lactate Dehydrogenase 175 Total Protein 6.4 L Albumin 3.9 Globulin 2.5 Albumin/Globulin Ratio 1.6 Lipase 830 H Urine Color Urine Clarity Urine pH Ur Specific [place] Urine Protein Urine Glucose (UA) Urine Ketones Urine Occult Blood Urine Nitrite Urine Bilirubin Urine Urobilinogen Ur Leukocyte Esterase Ur Microscopic Review Urine Culture Comments Ethyl Alcohol 12/22/17 12/22/17 08:12 09:40 WBC RBC Hgb Hct MCV MCH MCHC RDW Plt Count MPV Neut # (Auto) Lymph # (Auto) [place]igg # (Auto) Eos # (Auto) Baso # (Auto) Absolute Nucleated RBC Nucleated RBC % Sodium Potassium Chloride Carbon Dioxide Anion Gap BUN Creatinine Estimated GFR (MDRD) Glucose Calcium Total Bilirubin AST ALT Alkaline Phosphatase Lactate Dehydrogenase Total Protein Albumin Globulin Albumin/Globulin Ratio Lipase Urine Color DARK YELLOW Urine Clarity CLEAR Urine pH 5.5 Ur Specific [place] >=1.030 H Urine Protein NEGATIVE Urine Glucose (UA) NEGATIVE Urine Ketones NEGATIVE Urine Occult Blood NEGATIVE Urine Nitrite NEGATIVE Urine Bilirubin NEGATIVE Urine Urobilinogen 0.2 (NORMAL) Ur Leukocyte Esterase NEGATIVE Ur Microscopic Review NOT INDICATED Urine Culture Comments NOT INDICATED Ethyl Alcohol < 5.0 PD MEDICAL DECISION MAKING - ED course Complexity details: reviewed results, considered differential (Her pain seems likely consistent with pancreatitis and her drinking history would go along with that. Her liver enzymes are minimally elevated and there alk phos is normal so does not sound like gallbladder pancreatitis. Her LDH, glucose, calcium are at good numbers so does not sound like critical or severe pancreatitis. Her symptoms and lipase are high enough that I do not think she will be treatable outpatient. She has received several doses of pain medicine here to again moderate control. She is no longer nauseous. I talked with the hospitalist who agrees to treat the patient in the hospital.), d/w patient, d/w commercial solar sales consultant (Dr. Avitia, Hospitalist) - Sepsis Event Vital Signs: Vital Signs - 24 hr 12/22/17 12/22/17 07:50 09:28 Temperature 36.4 C L Heart Rate 64 66 Respiratory 18 20 Rate Blood Pressure 111/79 112/81 H O2 Saturation 100 100 Oxygen O2 Source Room air Departure - Departure Disposition: [facility] DC/Xfer Clinical Impression: Abdominal pain Qualifiers: Abdominal location: upper abdomen, unspecified Qualified Code(s): R10.10 - Upper abdominal pain, unspecified Acute alcoholic pancreatitis Qualifiers: Acute pancreatitis complication: unspecified Qualified Code(s): K85.20 - Alcohol induced acute pancreatitis without necrosis or infection Condition: Stable Record reviewed to determine appropriate education?: Yes
[2017-12-22] MEDS ORDERED: MORPHINE 10 MG/ML VIAL IVP STA ×2 (08:04→09:21)
[2017-12-22] MEDS ORDERED: FAMOTIDINE 20 MG/50 ML 50 ML IV ONE (08:04)
[2017-12-22] MEDS ORDERED: KETOROLAC 15 MG/ML VIAL IVP STA (08:04)
[2017-12-22] MEDS ORDERED: SODIUM CHLORIDE 0.9% 1,000 ML IV ONE (08:04)
[2017-12-22 08:24] LABS: BASOPHILS # (AUTO) 0.1 10^3/uL (0.0-0.1); BASOPHILS % (AUTO) 0.8 %; EOSINOPHILS % (AUTO) 0.4 %; HGB - HEMOGLOBIN 13.2 g/dL (12.0-16.0); LYMPHOCYTES # (AUTO) 0.9 10^3/uL (1.5-3.5); LYMPHOCYTES % (AUTO) 9.6 %; MEAN CORPUSCULAR HEMOGLOBIN 35.3 pg (27.0-31.0); MEAN CORPUSCULAR HGB CONC 35.1 g/dL (32.0-36.0); MEAN CORPUSCULAR VOLUME 100.7 fL (81.0-99.0); MEAN PLATELET VOLUME 7.9 fL (7.9-10.8); MONOCYTES # (AUTO) 0.5 10^3/uL (0.0-1.0); MONOCYTES % (AUTO) 5.7 %; NEUTROPHILS # (AUTO) 7.8 10^3/uL (1.5-6.6); NEUTROPHILS % (AUTO) 83.5 %; PLT - PLATELET COUNT 229 10^3/uL (130-450); RED BLOOD COUNT 3.75 10^6/uL (4.20-5.40); RED CELL DISTRIBUTION WIDTH 12.8 % (12.0-15.0); WHITE BLOOD COUNT 9.3 x10^3/uL (4.8-10.8)
[2017-12-22 09:04] LABS: ALBUMIN 3.9 g/dL (3.2-5.5); ALBUMIN/GLOBULIN RATIO 1.6 (1.0-2.2); BILIRUBIN,TOTAL 0.8 mg/dL (0.2-1.0); CALCIUM 8.5 mg/dL (8.5-10.3); CREATININE 0.5 mg/dL (0.4-1.0); TOTAL PROTEIN 6.4 g/dL (6.7-8.2)
[2017-12-22 09:46] LABS: MUDS CUTOFF CONCENTRATIONS CUTOFF CONC BELOW:
[2017-12-22 09:54] LABS: BILIRUBIN,URINE NEGATIVE (NEGATIVE); GLUCOSE, URINE (UA) NEGATIVE (NEGATIVE); KETONES,URINE (UA) NEGATIVE (NEGATIVE); LEUKOCYTE ESTERASE, URINE NEGATIVE (NEGATIVE); NITRITE,URINE NEGATIVE (NEGATIVE); OCCULT BLOOD,URINE NEGATIVE (NEGATIVE); PH,URINE 5.5 PH (5.0-7.5); PROTEIN,URINE NEGATIVE (NEGATIVE); UROBILINOGEN,URINE 0.2 (NORMAL) E.U./dL (NORMAL)
[2017-12-22 09:58] LABS: CLARITY,URINE CLEAR (CLEAR)
[2017-12-22] MEDS ORDERED: LORazepam 2 MG/ML VIAL IVP STA (10:01)
[2017-12-22] MEDS ORDERED: HYDROmorphone 2 MG/ML VIAL IVP STA (10:01)
[2017-12-22 10:05] LABS: BENZODIAZEPINES SCREEN, URINE POSITIVE (NEGATIVE); METHADONE SCREEN, URINE POSITIVE (NEGATIVE); OPIATE SCREEN, URINE POSITIVE (NEGATIVE)
[2017-12-22 10:06] LABS: AMPHETAMINE SCREEN,URINE NEGATIVE (NEGATIVE); COCAINE SCREEN URINE NEGATIVE (NEGATIVE); METHAMPHETAMINES SCREEN, URINE NEGATIVE (NEGATIVE); OXYCODONE SCREEN, URINE NEGATIVE (NEGATIVE); PROPOXYPHENE SCREEN, URINE NEGATIVE (NEGATIVE); TRICYCLIC ANTIDEPRESSANT,URINE NEGATIVE (NEGATIVE)
[2017-12-22] MEDS ORDERED: ZOLPIDEM 5 MG TABLET PO PRN (10:43)
[2017-12-22] MEDS ORDERED: oxyCODONE 5 MG TABLET PO PRN (10:43)
[2017-12-22] MEDS ORDERED: PROMETHAZINE 25 MG/1 ML VIAL IM PRN (10:43)
[2017-12-22] MEDS ORDERED: PROCHLORPERAZINE 10 MG/2 ML VIAL IVP PRN (10:43)
[2017-12-22] MEDS ORDERED: ACETAMINOPHEN 325 MG TABLET PO PRN (10:43)
--- NOTE | 2017-12-22 10:53 | HISTORY & PHYSICAL EXAMINATION ---
Chief Complaint - Chief Complaint Chief Complaint: Abdominal Pain History of Present Illness - Admitted From Admitted From:: Emergency Department - History Obtained From Records Reviewed: Yes History obtained from: Patient Exam Limitations: None - History of Present Illness HPI Comment/Other: Patient is a 47-year-old female with a past medical history significant for severe depression with history of suicidal ideations and suicide attempt at the age of 18, and alcohol abuse who presented to the emergency department with a chief complaint of abdominal pain. The patient states that she woke this morning at around 5 AM and noticed she was having cramping in her abdomen. She states that the feeling became progressively worse over the course of the morning. She states the cramping turned into a stabbing pain. She states it was located in the epigastric area but was moving down into the right lower quadrant of her abdomen. She states that along with the pain she began developing nausea and around 7:30 in the morning the pain became severe 10 out of 10. She states that that point it was a ripping/shooting pain that was radiating into her back. She states that she had a hard time taking a deep breath as it would exacerbate the pain. She states that this point she began having vomiting. The patient also became lightheaded and felt as though she was going to pass out. She states the pain was so severe that she was on the floor crunched up in the position. The patient denies any fevers, diarrhea, constipation. She denies any chest pain, cough or shortness of breath. The patient denies any urinary urgency, urinary frequency or dysuria. She denies any blood in her stools or bloody urine. The patient does admit to drinking daily. She states that she drinks about 4 tall cans of Hurricaine beer which is 8.1% alcohol and comes in a 40 fluid ounce container. She states that she does not drink any hard liquor. She states that she is recently been going through a divorce. She states in the divorce her has taken her children. She has been very depressed and she has been drinking more alcohol recently. The patient denies any history of gallstones or high cholesterol. Patient denies any headaches, blurred vision, runny nose, sore throat, nasal congestion, difficulty swallowing, orthopnea, PND, increased lower extremity swelling, joint pain, joint swelling, back pain, muscle aches, neck stiffness, hair loss, skin rash, recent unintentional weight loss, changes in her appetite , night sweats or any focal neurologic deficits. On presentation to the emergency department the patient was afebrile and vital signs were within normal limits. The patient appeared to be in acute distress as she was very nauseated and in severe pain. The patient received 2 doses of IV morphine 10 mg in the emergency department along with IV Toradol. She also received a dose of IV Dilaudid. The patient was given a liter of IV fluid and a dose of Zofran for nausea. While in the emergency department the patient did have several episodes of vomiting and continued to be in distress with abdominal pain. The patient underwent routine lab work which did reveal a lipase of 830 and a mild hypokalemia. The patient otherwise did not have a leukocytosis. The patient's urinalysis was negative and her blood alcohol level was negative. The patient was [facility] for acute [facility]itis. 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 She states that she grew up in [facility] but has been living on [facility] since [address]. 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 The patient states that she does have a college degree in child psychology. She has a 14-year-old girl and a 16-year-old boy but her ex- has custody of both. She is recently . She drinks about 4 cans of Hurricaine beer daily and no hard alcohol. She has been drinking more so recently because of stress from her divorce. She smokes 1-2 cigarettes a day previously smoked a pack a day for about 2 years and has been a smoker since her teen years but a pack a day was as heavy as she is ever smoked. She states that she has tried marijuana in the past but currently does not consume marijuana and denies any illicit drug use. - POLST Patient has POLST: No POLST Status: Full Code Meds/Allgy - Home Medications Home Medications: Ambulatory Orders Medication Instructions Recorded Confirmed Bupropion HCl [Bupropion HCl Sr] 150 mg PO BID 07/20/15 04/23/17 Sertraline [Zoloft] 50 mg PO DAILY 11/22/17 12/22/17 - Allergies Allergies/Adverse Reactions: Allergies Allergy/AdvReac Type Severity Reaction Status Date / Time No Known Drug Allergies Allergy Verified 11/22/17 20:15 Review of Systems - Other Findings Other Findings: A comprehensive review of systems was performed the pertinent positives and negatives are stated above in the HPI and the remainder of the review of systems is negative. Exam - Vital Signs Reviewed Vital Signs: Yes Vital Signs: Vital Signs x48h Temp Pulse Resp BP Pulse Ox 12/22/17 09:28 66 20 112/81 H 100 12/22/17 07:50 36.4 C L 64 18 111/79 100 - Physical Exam General Appearance: positive: Alert, Moderate distress (Abdominal pain, cannot seem to get comfortable) Eyes Bilateral: positive: Normal inspection, PERRL, EOMI, No lid inflammation, Conjunctivae nml, No scleral icterus ENT: positive: ENT inspection nml, Pharynx nml, Dry mucous membranes. negative : Purulent nasal drainage, Pharyngeal erythema, Oral lesions Neck: positive: Nml inspection, Thyroid nml, No JVD, Trachea midline. negative : Thyromegaly, Lymphadenopathy (R), Lymphadenopathy (L), Stiff neck, Carotid bruit, Tracheal deviation Respiratory: positive: Chest non-tender, No respiratory distress, Breath sounds nml, Other (Difficulty taking a deep breath secondary to abdominal pain). negative: Wheezes, Rales, Rhonchi Cardiovascular: positive: Regular rate & rhythm, No murmur, No gallop Peripheral Pulses: positive: 2+ Abdomen: positive: No organomegaly, Nml bowel sounds, Tenderness (Diffuse but worst in the epigrastric area, no rebound, soft does not have a surgical abdomen.), Guarding (Voluntary guarding). negative: Rebound, Hepatomegaly Back: positive: Nml inspection. negative: CVA tenderness (R), CVA tenderness (L ) Skin: positive: Color nml, No rash, Warm, Dry Extremities: positive: Non-tender, Full ROM, Nml appearance, No pedal edema Neurologic/Psychiatric: positive: Oriented x3, CN's nml (2-12), Motor nml, Sensation nml, Mood/affect nml Conclusion/Plan - Problem List (1) Acute pancreatitis Conclusion/Plan: Patient presented with abdominal pain radiating to the back, nausea and vomiting. Her lipase was elevated to 830. She is a drinker and has been drinking more recently. This appears to be alcohol induced pancreatitis. The patients BISAP score is 0 giving her a <1% risk of mortality. Ransons criteria score is also 0. The patient however has intractable pain, nausea and vomiting. She is being hospitalized for treatment with IV fluids, IV antibiotics and IV narcotics. Plan: N.p.o. except meds IV fluids IV narcotics IV antiemetics Abdominal ultrasound to rule out gallstones Lipid profile Counseled on need for alcohol cessation Qualifiers: Pancreatitis type: alcohol induced (2) Alcohol abuse Conclusion/Plan: Patient is a daily drinker. And likely developed pancreatitis secondary to alcohol abuse. Patient's blood alcohol level was negative on presentation. She states that she has been drinking more recently secondary to psychosocial stressors. Plan: Place patient on alcohol withdrawal protocol IV banana bag with thiamine, folate and multivitamin IV magnesium Check B12 and folate Ativan as needed Social work consult (3) Hypokalemia Conclusion/Plan: On presentation to the emergency department the patient is hypokalemic with a potassium of 3.4. This is likely secondary to nausea and vomiting. Plan: Replace potassium Monitor potassium (4) Elevated LFTs Conclusion/Plan: The patient has mildly elevated LFTs with AST of 68 and ALT of 77. These are likely elevated secondary to alcohol abuse. We will continue to monitor her LFTs and get an abdominal ultrasound. (5) Depression Conclusion/Plan: Patient continues to be depressed due to her ongoing divorce. The patient states she is not suicidal and is not having any suicidal ideations. She states that she has not been taking her antidepressants at home. She does not want to take them here. We will just continue to monitor the patient's symptoms for now. We will get a social work consult. Qualifiers: Depression Type: major depressive disorder Active/Remission status: in partial remission (6) Hyperglycemia Conclusion/Plan: The patient is hyperglycemic on presentation with a blood glucose of 157. It looks like the patient has been hyperglycemic in the past just 1 month ago her blood glucose was 159. She does not have a hemoglobin A1c in our system. She has no history of diabetes. She does not have any family history of diabetes. The patient's blood glucose could be elevated in relation to her acute pancreatitis. However we will get a hemoglobin A1c to see the trend of her blood glucose over the last 3 months. - Lab Results Lab results reviewed: Yes Fish Bones: 12/22/17 08:04 12/22/17 08:12 Other Lab Results: Laboratory Results WBC 9.3 x10^3/uL (4.8-10.8) 12/22/17 08:04 RBC 3.75 10^6/uL (4.20-5.40) L 12/22/17 08:04 Hgb 13.2 g/dL (12.0-16.0) 12/22/17 08:04 Hct 37.7 % (37.0-47.0) 12/22/17 08:04 MCV 100.7 fL (81.0-99.0) H 12/22/17 08:04 MCH 35.3 pg (27.0-31.0) H 12/22/17 08:04 MCHC 35.1 g/dL (32.0-36.0) 12/22/17 08:04 RDW 12.8 % (12.0-15.0) 12/22/17 08:04 Plt Count 229 10^3/uL (130-450) 12/22/17 08:04 MPV 7.9 fL (7.9-10.8) 12/22/17 08:04 Neut # (Auto) 7.8 10^3/uL (1.5-6.6) H 12/22/17 08:04 Lymph # (Auto) 0.9 10^3/uL (1.5-3.5) L 12/22/17 08:04 [place] # (Auto) 0.5 10^3/uL (0.0-1.0) 12/22/17 08:04 Eos # (Auto) 0.0 10^3/uL (0.0-0.7) 12/22/17 08:04 Baso # (Auto) 0.1 10^3/uL (0.0-0.1) 12/22/17 08:04 Absolute Nucleated RBC 0.00 x10^3/uL 12/22/17 08:04 Nucleated RBC % 0.0 /100WBC 12/22/17 08:04 Sodium 136 mmol/L (135-145) 12/22/17 08:12 Potassium 3.4 mmol/L (3.5-5.0) L 12/22/17 08:12 Chloride 97 mmol/L (101-111) L 12/22/17 08:12 Carbon Dioxide 29 mmol/L (21-32) 12/22/17 08:12 Anion Gap 10.0 (6-13) 12/22/17 08:12 BUN 6 mg/dL (6-20) 12/22/17 08:12 Creatinine 0.5 mg/dL (0.4-1.0) 12/22/17 08:12 Estimated GFR (MDRD) 133 (>89) 12/22/17 08:12 Glucose 157 mg/dL (70-100) H 12/22/17 08:12 Calcium 8.5 mg/dL (8.5-10.3) 12/22/17 08:12 Total Bilirubin 0.8 mg/dL (0.2-1.0) 12/22/17 08:12 AST 68 IU/L (10-42) H 12/22/17 08:12 ALT 77 IU/L (10-60) H 12/22/17 08:12 Alkaline Phosphatase 98 IU/L (42-121) 12/22/17 08:12 Lactate Dehydrogenase 175 IU/L (91-225) 12/22/17 08:12 Total Protein 6.4 g/dL (6.7-8.2) L 12/22/17 08:12 Albumin 3.9 g/dL (3.2-5.5) 12/22/17 08:12 Globulin 2.5 g/dL (2.1-4.2) 12/22/17 08:12 Albumin/Globulin Ratio 1.6 (1.0-2.2) 12/22/17 08:12 Lipase 830 U/L (22-51) H 12/22/17 08:12 Urine Color DARK YELLOW 12/22/17 09:40 Urine Clarity CLEAR (CLEAR) 12/22/17 09:40 Urine pH 5.5 PH (5.0-7.5) 12/22/17 09:40 Ur Specific [place] >=1.030 (1.002-1.030) H 12/22/17 09:40 Urine Protein NEGATIVE mg/dL (NEGATIVE) 12/22/17 09:40 Urine Glucose (UA) NEGATIVE mg/dL (NEGATIVE) 12/22/17 09:40 Urine Ketones NEGATIVE mg/dL (NEGATIVE) 12/22/17 09:40 Urine Occult Blood NEGATIVE (NEGATIVE) 12/22/17 09:40 Urine Nitrite NEGATIVE (NEGATIVE) 12/22/17 09:40 Urine Bilirubin NEGATIVE (NEGATIVE) 12/22/17 09:40 Urine Urobilinogen 0.2 (NORMAL) E.U./dL (NORMAL) 12/22/17 09:40 Ur Leukocyte Esterase NEGATIVE (NEGATIVE) 12/22/17 09:40 Ur Microscopic Review NOT INDICATED 12/22/17 09:40 Urine Culture Comments NOT INDICATED 12/22/17 09:40 Urine Opiates Screen POSITIVE (NEGATIVE) H 12/22/17 09:40 Ur Oxycodone Screen NEGATIVE (NEGATIVE) 12/22/17 09:40 Urine Methadone Screen POSITIVE (NEGATIVE) H 12/22/17 09:40 Ur Propoxyphene Screen NEGATIVE (NEGATIVE) 12/22/17 09:40 Ur Barbiturates Screen NEGATIVE (NEGATIVE) 12/22/17 09:40 Ur Tricyclics Screen NEGATIVE (NEGATIVE) 12/22/17 09:40 Ur Phencyclidine Scrn NEGATIVE (NEGATIVE) 12/22/17 09:40 Ur Amphetamine Screen NEGATIVE (NEGATIVE) 12/22/17 09:40 U Methamphetamines Scrn NEGATIVE (NEGATIVE) 12/22/17 09:40 U Benzodiazepines Scrn POSITIVE (NEGATIVE) H 12/22/17 09:40 Urine Cocaine Screen NEGATIVE (NEGATIVE) 12/22/17 09:40 U Cannabinoids Screen NEGATIVE (NEGATIVE) 12/22/17 09:40 Ethyl Alcohol < 5.0 mg/dL 12/22/17 08:12 Core Measures - Anticipated LOS I expect patient to be DC'd or transferred within 96 hours.: Yes - DVT/VTE - Prophylaxis VTE/DVT Prophylaxis med ordered at admit?: Yes
[2017-12-22] MEDS: NS W/20 MEQ KCL 1,000 ML IV SCH (11:54)
[2017-12-22] MEDS: SERTRALINE 50 MG TABLET PO SCH (11:54)
[2017-12-22] MEDS: ONDANSETRON 4 MG/2 ML VIAL IVP PRN ×2 (11:59→18:47)
[2017-12-22] MEDS: SODIUM CHLORIDE FLUSH 0.9% 10 ML SYRINGE IVP PRN ×4 (11:59→20:55)
[2017-12-22] MEDS: MORPHINE 2 MG/ML SYRINGE IVP PRN ×6 (12:00→23:59)
[2017-12-22] MEDS ORDERED: MAGNESIUM SULFATE 2 GRAM 2 GM/50 ML BAG IV ONE (12:36)
[2017-12-22] MEDS ORDERED: LORazepam 2 MG/ML VIAL IVP PRN (12:36)
[2017-12-22] MEDS: NICOTINE 21 MG PATCH TOP SCH (12:46)
[2017-12-22] MEDS: MULTIVITAMIN 10 ML in SODIUM CHLORIDE 0.9% 1,000 ML IV SCH (14:42)
[2017-12-22] MEDS: THIAMINE INJ 100 MG, FOLIC ACID INJ 1 MG in SODIUM CHLORIDE 0.9% 100ML 100 ML IV SCH (14:42)
--- NOTE | 2017-12-22 15:09 | Ultrasound Report ---
Reason: Pancreatitis r/o gallstones, psuedocyst Procedure Date: 12/22/2017 Accession Number: [id number] / [id number] Procedure: US - Abdomen Complete CPT Code: FULL RESULT: EXAM: ABDOMEN ULTRASOUND EXAM DATE: 12/22/2017 02:59 PM. CLINICAL HISTORY: Abdominal pain, pancreatitis COMPARISON: None. TECHNIQUE: Real-time scanning was performed with static images obtained. FINDINGS: Liver: Diffusely hyperechoic echotexture. No focal lesions. 16.9 cm. Main portal vein flow: Hepatopetal. Gallbladder: The gallbladder is distended. No gallstones, gallbladder wall thickening or pericholecystic fluid collections however seen. Biliary System: Common bile duct measures 4.6 mm. No intrahepatic or extrahepatic ductal dilatation. Pancreas: Visualized portion is unremarkable. Kidneys: Right: 10.0 cm longitudinally. Normal. No contour-deforming mass, stones, or hydronephrosis. Left: 9.9 cm longitudinally. Normal. No contour-deforming mass, stones, or hydronephrosis. Spleen: 9.8 x 3.6 x 3.3 cm. Normal in size and echotexture. Aorta and Inferior Vena Cava: Unremarkable. Other: There is a 7.8 x 8.7 x 6.2 cm left upper quadrant cystic mass containing internal septations. The masses between the spleen and left kidney however does not clearly arise from these organs. IMPRESSION: 1. Complex left upper quadrant cystic mass which in setting of pancreatitis may represent a pseudocyst. Further evaluation with contrast-enhanced CT recommended. 2. Fatty liver. 3. Distended gallbladder without evidence of cholelithiasis, cholecystitis or bile duct obstruction. RADIA
[2017-12-22] MEDS ORDERED: IOPAMIDOL-300 100 ML VIAL ONE (16:16)
[2017-12-22] MEDS: SODIUM CHLORIDE FLUSH 0.9% 10 ML SYRINGE IVP SCH (16:41)
[2017-12-22] MEDS ORDERED: IOPAMIDOL-300 100 ML VIAL IVP ONE (17:04)
--- NOTE | 2017-12-22 19:10 | CT Report ---
Reason: Pancreatitis with cystic mass on US Procedure Date: 12/22/2017 Accession Number: [id number] / [id number] Procedure: CT - Abdomen/Pelvis W/ CPT Code: FULL RESULT: EXAM: CT ABDOMEN AND PELVIS EXAM DATE: 12/22/2017 04:57 PM. CLINICAL HISTORY: 100 mL [id number] COMPARISONS: None. TECHNIQUE: Routine helical CT imaging was performed through the abdomen and pelvis. IV contrast: CE. Enteric contrast: No. Reconstructions: Coronal and sagittal. In accordance with CT protocol optimization, one or more of the following dose reduction techniques were utilized for this exam: automated exposure control, adjustment of mA and/or KV based on patient size, or use of iterative reconstructive technique. FINDINGS: Lung Bases: Unremarkable. Liver: No focal liver lesions. There is decreased hepatic attenuation. Gallbladder/Bile Ducts: Unremarkable. Spleen: Normal. Pancreas: Peripancreatic edema and stranding. Generalized edema also seen within the mesentery with trace pelvic ascites. Adrenal Glands: Normal. Kidneys: 5 mm left renal hypodensity most likely representing a cyst or angiomyolipoma. The kidneys are otherwise normal. Peritoneal Cavity/Bowel: Normal. No free fluid, free air or adenopathy. No masses or acute inflammatory process. The appendix is well visualized and normal. Pelvic Organs: Normal. The bladder and visualized pelvic organs are within normal limits. Vasculature: No aneurysms or other significant abnormality. Bones: No significant abnormality. Other: None. IMPRESSION: 1. Fatty liver. 2. Peripancreatic, including mesenteric edema and trace pelvic ascites raising the possibility of pancreatitis. 3. No bowel obstruction. 4. No evidence of cholecystitis or bile duct obstruction. RADIA
[2017-12-22] MEDS: buPROPion SR 150 MG TABLET PO SCH (20:56)
[2017-12-23] MEDS: MORPHINE 2 MG/ML SYRINGE IVP PRN ×10 (03:22→23:41)
[2017-12-23] MEDS: NS W/20 MEQ KCL 1,000 ML IV SCH ×3 (04:04→21:39)
[2017-12-23 06:11] LABS: BASOPHILS % (AUTO) 0.4 %; EOSINOPHILS % (AUTO) 0.4 %; HGB - HEMOGLOBIN 12.8 g/dL (12.0-16.0); LYMPHOCYTES # (AUTO) 0.7 10^3/uL (1.5-3.5); LYMPHOCYTES % (AUTO) 8.7 %; MEAN CORPUSCULAR HEMOGLOBIN 35.2 pg (27.0-31.0); MEAN CORPUSCULAR HGB CONC 34.8 g/dL (32.0-36.0); MEAN CORPUSCULAR VOLUME 101.2 fL (81.0-99.0); MEAN PLATELET VOLUME 7.7 fL (7.9-10.8); MONOCYTES # (AUTO) 0.5 10^3/uL (0.0-1.0); MONOCYTES % (AUTO) 6.7 %; NEUTROPHILS # (AUTO) 6.5 10^3/uL (1.5-6.6); NEUTROPHILS % (AUTO) 83.8 %; PLT - PLATELET COUNT 206 10^3/uL (130-450); RED BLOOD COUNT 3.64 10^6/uL (4.20-5.40); RED CELL DISTRIBUTION WIDTH 12.9 % (12.0-15.0); WHITE BLOOD COUNT 7.8 x10^3/uL (4.8-10.8)
[2017-12-23 06:18] LABS: INR 1.1 (0.8-1.2); PT - PROTHROMBIN TIME 12.6 secs (9.9-12.6)
[2017-12-23 06:43] LABS: CHOL/HDL RATIO 1.8 (<4.4); CHOLESTEROL 140 mg/dL; HDL CHOLESTEROL 77 mg/dL; LDL CHOLESTEROL,CALCULATED 53 mg/dL; LDL/HDL RATIO 0.7 (<4.4); VLDL CHOLESTEROL 10 mg/dL
[2017-12-23 06:45] LABS: ALBUMIN 3.3 g/dL (3.2-5.5); ALBUMIN/GLOBULIN RATIO 1.5 (1.0-2.2); ALKALINE PHOSPHATASE 95 IU/L (42-121); ALT ALANINE AMINOTRANSFERASE 53 IU/L (10-60); AMYLASE 354 U/L (28-100); AST ASPARTATE AMINOTRANSFERASE 39 IU/L (10-42); BILIRUBIN,TOTAL 1.1 mg/dL (0.2-1.0); BUN - BLOOD UREA NITROGEN < 5 mg/dL (6-20); CALCIUM 8.1 mg/dL (8.5-10.3); CARBON DIOXIDE - CO2 27 mmol/L (21-32); CHLORIDE 100 mmol/L (101-111); CREATININE 0.5 mg/dL (0.4-1.0); GFR - MDRD 133 (>89); GLUCOSE 103 mg/dL (70-100); LIPASE 682 U/L (22-51); MAGNESIUM 2.2 mg/dL (1.7-2.8); PHOSPHORUS 3.2 mg/dL (2.5-4.6); SODIUM 134 mmol/L (135-145); TOTAL PROTEIN 5.5 g/dL (6.7-8.2)
[2017-12-23 06:53] LABS: FOLATE 17.31 ng/mL (5.90 - >24.8)
[2017-12-23 08:26] LABS: HB2 TOTAL 13.4 g/dL; HEMOGLOBIN A1C 0.38 g/dL; HEMOGLOBIN A1C % 4.7 % (4.6-6.2)
[2017-12-23] MEDS: NICOTINE 21 MG PATCH TOP SCH (08:48)
[2017-12-23] MEDS: POLYETHYLENE GLYCOL 3350 17 GM PACKET PO SCH (08:49)
[2017-12-23] MEDS: ENOXAPARIN 40 MG/0.4 ML SYRINGE SUBQ SCH (08:49)
[2017-12-23] MEDS: buPROPion SR 150 MG TABLET PO SCH ×2 (08:50→19:26)
[2017-12-23] MEDS: FAMOTIDINE 20 MG TABLET PO SCH (08:50)
[2017-12-23] MEDS: THIAMINE INJ 100 MG, FOLIC ACID INJ 1 MG in SODIUM CHLORIDE 0.9% 100ML 100 ML IV SCH (09:08)
[2017-12-23] MEDS: MULTIVITAMIN 10 ML in SODIUM CHLORIDE 0.9% 1,000 ML IV SCH (09:08)
[2017-12-23] MEDS: SODIUM CHLORIDE FLUSH 0.9% 10 ML SYRINGE IVP SCH ×3 (09:13→17:31)
[2017-12-23] MEDS: SERTRALINE 50 MG TABLET PO SCH (09:13)
--- NOTE | 2017-12-23 12:49 | PROVIDER PROGRESS NOTE ---
Assessment/Plan - Problem List (1) Acute pancreatitis Qualifiers: Pancreatitis type: alcohol induced Assessment/Plan: Patient presented with abdominal pain radiating to the back, nausea and vomiting. Her lipase was elevated to 830. She is a drinker and has been drinking more recently. This appears to be alcohol induced pancreatitis. The patients BISAP score is 0 giving her a <1% risk of mortality. Ransons criteria score is also 0. The patient however has intractable pain, nausea and vomiting. She is being hospitalized for treatment with IV fluids, IV antibiotics and IV narcotics. Patient has had mild improvement but continues to have pain and nausea Continue N.p.o. except meds IV fluids IV narcotics IV antiemetics Abdominal ultrasound showed possible cystic mass concerning for pancreatic pseudocyst but CT shows no pseudocyst but does show a fatty liver, peripancreatic including mesenteric edema and trace pelvic ascites concerning for pancreatitis. Lipid profile showed normal triglycerides Appears to have alcoholic pancreatitis Counseled on need for alcohol cessation Lipase down to 682 from 830 Qualifiers: Pancreatitis type: alcohol induced (2) Alcohol abuse Conclusion/Plan: Patient is a daily drinker. And likely developed pancreatitis secondary to alcohol abuse. Patient's blood alcohol level was negative on presentation. She states that she has been drinking more recently secondary to psychosocial stressors. Patient not showing any signs of alcohol withdrawal at this point Continue patient on alcohol withdrawal protocol IV banana bag with thiamine, folate and multivitamin IV magnesium Folate and B12 are WNLs Ativan as needed Social work consulted (3) Hypokalemia Conclusion/Plan: Resolved with K replacement (4) Elevated LFTs Conclusion/Plan: The patient had mildly elevated LFTs with AST of 68 and ALT of 77. These are likely elevated secondary to alcohol abuse. Improved. CT showed fatty liver. (5) Depression Conclusion/Plan: Patient continues to be depressed due to her ongoing divorce. The patient states she is not suicidal and is not having any suicidal ideations. She states that she has not been taking her antidepressants at home. She does not want to take them here. We will just continue to monitor the patient's symptoms for now. Social work consulted Qualifiers: Depression Type: major depressive disorder Active/Remission status: in partial remission (6) Hyperglycemia Conclusion/Plan: Resolved A1C of 4.7 (7) Tobacco Abuse Conclusion/Plan: Patient continues to smoke cigarettes daily although she states she has cut down from 1 PPD to a few cigarettes a day. She was counselled on harmful effects of smoking and advised to quit. Patient placed on a nicotine patch while she is hospitalized. - Current Meds Current Meds: Current Medications Generic Name Dose Route Start Last Admin Trade Name Freq PRN Reason Stop Dose Admin Acetaminophen 650 mg 12/22/17 10:43 12/22/17 16:09 Tylenol PO 650 mg Q4HR PRN Administration Pain 1 to 4 Bupropion HCl 150 mg 12/22/17 21:00 12/23/17 08:50 Wellbutrin Sr PO Not Given BID RAFFI Enoxaparin Sodium 40 mg 12/23/17 09:00 12/23/17 08:49 Lovenox SUBQ 40 mg DAILY RAFFI Administration Famotidine 20 mg 12/23/17 09:00 12/23/17 08:50 Pepcid PO Not Given DAILY RAFFI Potassium Chloride/Sodium Chloride 1,000 mls @ 100 mls/hr 12/22/17 11:00 11:20 Normal Saline 0.9% W/20 Meq Kcl IV 100 mls/hr .Q10H RAFFI Administration Multivitamins 10 ml/ Sodium 1,010 mls @ 100 mls/hr 12/22/17 13:00 12/23/17 09 :08 Chloride IV 100 mls/hr DAILY RAFFI Administration Thiamine HCl 100 mg/ Folic 101.2 mls @ 50.6 mls/hr 12/22/17 13:00 12/23/17 11 :03 Acid 1 mg/ Sodium Chloride IV 0 mls/hr DAILY RAFFI Infusion Morphine Sulfate 2 mg 12/22/17 10:43 12/23/17 11:00 Morphine IVP 2 mg Q2H PRN Administration Pain 8 to 10 Nicotine 1 patch 12/22/17 13:00 12/23/17 08:48 Nicoderm TOP 1 patch DAILY RAFFI Administration Ondansetron HCl 4 mg 12/22/17 10:43 12/22/17 18:47 Zofran Inj IVP 4 mg Q6HR PRN Administration Nausea / Vomiting Polyethylene Glycol 17 gm 12/23/17 09:00 12/23/17 08:49 Miralax PO Not Given DAILY RAFFI Prochlorperazine Edisylate 10 mg 12/22/17 10:43 12/23/17 00:00 Compazine Inj IVP 10 mg Q6HR PRN Administration Nausea / Vomiting Sertraline HCl 50 mg 12/22/17 11:00 12/23/17 09:13 Zoloft PO Not Given DAILY [facility] Sodium Chloride 10 ml 12/22/17 10:03 12/22/17 20:55 Normal Saline Flush 0.9% IVP 20 ml PRN PRN Administration NEEDED PER PROVIDER ORDERS Sodium Chloride 10 ml 12/22/17 17:00 12/23/17 09:13 Normal Saline Flush 0.9% IVP Not Given 0100,0900,1700 [facility] - Lab Result Lab results reviewed: Yes Fish Bone Diagrams: 12/23/17 06:00 12/23/17 06:00 - Diagnostic Imaging Results Diagnostic Imaging Results: Final report reviewed Diagnostic Imaging Results Comments: CT abdomen/pelvis Impression: 1. Fatty liver 2. Peripancreatic, including mesenteric edema and trace pelvic ascites raising the possibility of pancreatitis 3. No bowel obstruction 4. No evidence of cholecystitis or bile duct obstruction - Additional Planning My Orders: My Active Orders 12/22/17 11:49 Nutrition Consult [CONS] Routine 12/22/17 12:36 CIWA - AR Score Card [RC] Q4H Q4H Neuro Check [RC] QSHIFT QSHIFT LORazepam INJ [Ativan Inj (Vial)] 1 mg IVP Q30M PRN 12/22/17 13:00 Multivitamin [Infuvite] 10 ml Sodium Chloride 0.9% [Normal Saline 0.9%] 1,000 ml IV DAILY Nicotine 21 mg Patch [Nicoderm] 1 patch TOP DAILY Thiamine Inj [Vitamin B-1 Inj] 100 mg Folic Acid Inj 1 mg Sodium Chloride 0.9 % 100Ml [Normal Saline 0.9% 100Ml] 100 ml IV DAILY 12/23/17 09:00 Enoxaparin [Lovenox] 40 mg SUBQ DAILY Famotidine [Pepcid] 20 mg PO DAILY 12/24/17 05:00 AMYLASE [CHEM] DAILYLAB CBC - COMP BLD CT W/AUTO DIFF [HEME] DAILYLAB COMPREHENSIVE METABOLIC PANEL [CHEM] DAILYLAB LDH - LACTATE DEHYDROGENASE [CHEM] DAILYLAB LIPASE [CHEM] DAILYLAB MAGNESIUM [CHEM] DAILYLAB PHOSPHORUS [CHEM] DAILYLAB 12/25/17 05:00 AMYLASE [CHEM] DAILYLAB CBC - COMP BLD CT W/AUTO DIFF [HEME] DAILYLAB COMPREHENSIVE METABOLIC PANEL [CHEM] DAILYLAB LIPASE [CHEM] DAILYLAB MAGNESIUM [CHEM] DAILYLAB PHOSPHORUS [CHEM] DAILYLAB 12/26/17 05:00 AMYLASE [CHEM] DAILYLAB CBC - COMP BLD CT W/AUTO DIFF [HEME] DAILYLAB COMPREHENSIVE METABOLIC PANEL [CHEM] DAILYLAB LIPASE [CHEM] DAILYLAB MAGNESIUM [CHEM] DAILYLAB PHOSPHORUS [CHEM] DAILYLAB Plan Discussed with:: Patient Time Spent: 31-60 minutes Subjective - Subjective Patient Reports: Abdominal Pain (epigastric with radiation to the back. Improved but still persistent.), Back Pain, Nausea, Other (No fevers or chills.) Nursing Reports: No Complaints Objective Vital Signs: Vital Signs - 24 hr 12/22/17 12/22/17 12/23/17 15:37 20:23 00:00 Temperature 36.5 C 37.1 C 37.0 C Heart Rate [ 69 70 76 Brachial] Respiratory 16 16 18 Rate Blood Pressure 117/72 137/80 H 141/83 H [Right Brachial artery] O2 Saturation 99 100 100 12/23/17 12/23/17 03:30 08:00 Temperature 36.5 C 37.1 C Heart Rate [ 86 78 Brachial] Respiratory 18 18 Rate Blood Pressure 123/79 138/83 H [Right Brachial artery] O2 Saturation 95 98 Oxygen O2 Source Room air I&O (Last 24 Hrs): Intake and Output Totals x24h 12/21/17 12/22/17 12/23/17 23:59 23:59 23:59 Intake Total 213.582 5349.166 Output Total 1000 Balance -3.820 1259.166 General: Alert, Oriented x3, Cooperative, Mild distress (abd pain) HEENT: Atraumatic, PERRLA, EOMI, Other (Dry mucus membranes) Neck: Supple, No JVD, No thyromegaly, +2 carotid pulse wo bruit, No LAD Lymphatic: no adenopathy Neuro: Alert, Non Focal, CN 2-12 Grossly Intact, Oriented Times 3 Cardiovascular: Regular rate, Normal S1, Normal S2, No murmurs Respiratory: Chest non-tender, No respiratory distress, Breath sounds nml Abdomen: Soft, Other (Diffuse tenderness with voluntary guarding worst in the epigastric area) Extremities: No clubbing, No cyanosis, No edema, Normal pulses Skin: No rashes, No breakdown - Results Results: Laboratory Results WBC 7.8 x10^3/uL (4.8-10.8) 12/23/17 06:00 RBC 3.64 10^6/uL (4.20-5.40) L 12/23/17 06:00 Hgb 12.8 g/dL (12.0-16.0) 12/23/17 06:00 Hct 36.8 % (37.0-47.0) L 12/23/17 06:00 MCV 101.2 fL (81.0-99.0) H 12/23/17 06:00 MCH 35.2 pg (27.0-31.0) H 12/23/17 06:00 MCHC 34.8 g/dL (32.0-36.0) 12/23/17 06:00 RDW 12.9 % (12.0-15.0) 12/23/17 06:00 Plt Count 206 10^3/uL (130-450) 12/23/17 06:00 MPV 7.7 fL (7.9-10.8) L 12/23/17 06:00 Neut # (Auto) 6.5 10^3/uL (1.5-6.6) 12/23/17 06:00 Lymph # (Auto) 0.7 10^3/uL (1.5-3.5) L 12/23/17 06:00 [place] # (Auto) 0.5 10^3/uL (0.0-1.0) 12/23/17 06:00 Eos # (Auto) 0.0 10^3/uL (0.0-0.7) 12/23/17 06:00 Baso # (Auto) 0.0 10^3/uL (0.0-0.1) 12/23/17 06:00 Absolute Nucleated RBC 0.00 x10^3/uL 12/23/17 06:00 Nucleated RBC % 0.0 /100WBC 12/23/17 06:00 PT 12.6 secs (9.9-12.6) 12/23/17 06:00 INR 1.1 (0.8-1.2) 12/23/17 06:00 Sodium 134 mmol/L (135-145) L 12/23/17 06:00 Potassium 4.0 mmol/L (3.5-5.0) 12/23/17 06:00 Chloride 100 mmol/L (101-111) L 12/23/17 06:00 Carbon Dioxide 27 mmol/L (21-32) 12/23/17 06:00 Anion Gap 7.0 (6-13) 12/23/17 06:00 BUN < 5 mg/dL (6-20) L 12/23/17 06:00 Creatinine 0.5 mg/dL (0.4-1.0) 12/23/17 06:00 Estimated GFR (MDRD) 133 (>89) 12/23/17 06:00 Glucose 103 mg/dL (70-100) H 12/23/17 06:00 Glycated Hemoglobin 4.7 % (4.6-6.2) 12/23/17 06:00 Estim Average Glucose 88 (70-100) 12/23/17 06:00 Lactic Acid 0.7 mmol/L (0.5-2.2) 12/23/17 06:00 Calcium 8.1 mg/dL (8.5-10.3) L 12/23/17 06:00 Phosphorus 3.2 mg/dL (2.5-4.6) 12/23/17 06:00 Magnesium 2.2 mg/dL (1.7-2.8) 12/23/17 06:00 Total Bilirubin 1.1 mg/dL (0.2-1.0) H 12/23/17 06:00 AST 39 IU/L (10-42) 12/23/17 06:00 ALT 53 IU/L (10-60) 12/23/17 06:00 Alkaline Phosphatase 95 IU/L (42-121) 12/23/17 06:00 Lactate Dehydrogenase 163 IU/L (91-225) 12/23/17 06:00 Total Protein 5.5 g/dL (6.7-8.2) L 12/23/17 06:00 Albumin 3.3 g/dL (3.2-5.5) 12/23/17 06:00 Globulin 2.2 g/dL (2.1-4.2) 12/23/17 06:00 Albumin/Globulin Ratio 1.5 (1.0-2.2) 12/23/17 06:00 Triglycerides 48 mg/dL (-149) 12/23/17 06:00 Cholesterol 140 mg/dL (-199) 12/23/17 06:00 LDL Cholesterol, Calc 53 mg/dL (-129) 12/23/17 06:00 VLDL Cholesterol 10 mg/dL 12/23/17 06:00 HDL Cholesterol 77 mg/dL (60-) 12/23/17 06:00 LDL/HDL Ratio 0.7 (<4.4) 12/23/17 06:00 Cholesterol/HDL Ratio 1.8 (<4.4) 12/23/17 06:00 Amylase 354 U/L (28-100) H 12/23/17 06:00 Lipase 682 U/L (22-51) H 12/23/17 06:00 Vitamin B12 701 pg/mL (180-914) 12/23/17 06:00 Folate 17.31 ng/mL (5.90 - >24.8) 12/23/17 06:00 Urine Color DARK YELLOW 12/22/17 09:40 Urine Clarity CLEAR (CLEAR) 12/22/17 09:40 Urine pH 5.5 PH (5.0-7.5) 12/22/17 09:40 Ur Specific [place] >=1.030 (1.002-1.030) H 12/22/17 09:40 Urine Protein NEGATIVE mg/dL (NEGATIVE) 12/22/17 09:40 Urine Glucose (UA) NEGATIVE mg/dL (NEGATIVE) 12/22/17 09:40 Urine Ketones NEGATIVE mg/dL (NEGATIVE) 12/22/17 09:40 Urine Occult Blood NEGATIVE (NEGATIVE) 12/22/17 09:40 Urine Nitrite NEGATIVE (NEGATIVE) 12/22/17 09:40 Urine Bilirubin NEGATIVE (NEGATIVE) 12/22/17 09:40 Urine Urobilinogen 0.2 (NORMAL) E.U./dL (NORMAL) 12/22/17 09:40 Ur Leukocyte Esterase NEGATIVE (NEGATIVE) 12/22/17 09:40 Ur Microscopic Review NOT INDICATED 12/22/17 09:40 Urine Culture Comments NOT INDICATED 12/22/17 09:40 Urine Opiates Screen POSITIVE (NEGATIVE) H 12/22/17 09:40 Ur Oxycodone Screen NEGATIVE (NEGATIVE) 12/22/17 09:40 Urine Methadone Screen POSITIVE (NEGATIVE) H 12/22/17 09:40 Ur Propoxyphene Screen NEGATIVE (NEGATIVE) 12/22/17 09:40 Ur Barbiturates Screen NEGATIVE (NEGATIVE) 12/22/17 09:40 Ur Tricyclics Screen NEGATIVE (NEGATIVE) 12/22/17 09:40 Ur Phencyclidine Scrn NEGATIVE (NEGATIVE) 12/22/17 09:40 Ur Amphetamine Screen NEGATIVE (NEGATIVE) 12/22/17 09:40 U Methamphetamines Scrn NEGATIVE (NEGATIVE) 12/22/17 09:40 U Benzodiazepines Scrn POSITIVE (NEGATIVE) H 12/22/17 09:40 Urine Cocaine Screen NEGATIVE (NEGATIVE) 12/22/17 09:40 U Cannabinoids Screen NEGATIVE (NEGATIVE) 12/22/17 09:40 Ethyl Alcohol < 5.0 mg/dL 12/22/17 08:12 ABX Reporting Has patient been on IV antibiotics over the past 48 hours?: No Current Medications - Current Medications Current Medications: Active Medications Generic Name Dose Route Start Last Admin Trade Name Freq PRN Reason Stop Dose Admin Acetaminophen 650 mg 12/22/17 10:43 12/22/17 16:09 Tylenol PO 650 mg Q4HR PRN Administration Pain 1 to 4 Bupropion HCl 150 mg 12/22/17 21:00 12/23/17 08:50 Wellbutrin Sr PO Not Given BID RAFFI Enoxaparin Sodium 40 mg 12/23/17 09:00 12/23/17 08:49 Lovenox SUBQ 40 mg DAILY RAFFI Administration Famotidine 20 mg 12/23/17 09:00 12/23/17 08:50 Pepcid PO Not Given DAILY RAFFI Potassium Chloride/Sodium Chloride 1,000 mls @ 100 mls/hr 12/22/17 11:00 11:20 Normal Saline 0.9% W/20 Meq Kcl IV 100 mls/hr .Q10H RAFFI Administration Multivitamins 10 ml/ Sodium 1,010 mls @ 100 mls/hr 12/22/17 13:00 12/23/17 09 :08 Chloride IV 100 mls/hr DAILY RAFFI Administration Thiamine HCl 100 mg/ Folic 101.2 mls @ 50.6 mls/hr 12/22/17 13:00 12/23/17 11 :03 Acid 1 mg/ Sodium Chloride IV 0 mls/hr DAILY RAFFI Infusion Lorazepam 1 mg 12/22/17 12:36 Ativan Inj (Vial) IVP Q30M PRN CIWA >8 Protocol Morphine Sulfate 2 mg 12/22/17 10:43 12/23/17 11:00 Morphine IVP 2 mg Q2H PRN Administration Pain 8 to 10 Nicotine 1 patch 12/22/17 13:00 12/23/17 08:48 Nicoderm TOP 1 patch DAILY RAFFI Administration Ondansetron HCl 4 mg 12/22/17 10:43 12/22/17 18:47 Zofran Inj IVP 4 mg Q6HR PRN Administration Nausea / Vomiting Oxycodone HCl 5 mg 12/22/17 10:43 Roxicodone PO Q4HR PRN Pain 5 to 7 Oxycodone HCl 10 mg 12/22/17 10:43 Roxicodone PO Q4HR PRN Pain 8 to 10 Polyethylene Glycol 17 gm 12/23/17 09:00 12/23/17 08:49 Miralax PO Not Given DAILY [facility] Prochlorperazine Edisylate 10 mg 12/22/17 10:43 12/23/17 00:00 Compazine Inj IVP 10 mg Q6HR PRN Administration Nausea / Vomiting Promethazine HCl 25 mg 12/22/17 10:43 Phenergan Inj IM Q6HR PRN Nausea / Vomiting Sertraline HCl 50 mg 12/22/17 11:00 12/23/17 09:13 Zoloft PO Not Given DAILY [facility] Sodium Chloride 10 ml 12/22/17 10:03 12/22/17 20:55 Normal Saline Flush 0.9% IVP 20 ml PRN PRN Administration NEEDED PER PROVIDER ORDERS Sodium Chloride 10 ml 12/22/17 17:00 12/23/17 09:13 Normal Saline Flush 0.9% IVP Not Given 0100,0900,1700 [facility] Zolpidem Tartrate 5 mg 12/22/17 10:43 Ambien PO QPM PRN Insomnia Bupropion HCl [Bupropion HCl Sr] 150 mg PO BID 07/20/15 Sertraline [Zoloft] 50 mg PO DAILY 11/22/17
--- NOTE | 2017-12-23 13:04 | PROVIDER PROGRESS NOTE ---
Assessment/Plan - Problem List (1) Acute pancreatitis Qualifiers: Pancreatitis type: alcohol induced Assessment/Plan: Patient had persistent hypotension for two days and was found to have an elevated lactic acid of 3.1, she spiked a fever of 38.4, was tachycardic 110, tachypnic with RR of 30. CXR and CTA of lungs showed pulmonary edema but no evidence of pneumonia Started having increasing abdominal pain and tenderness on 12/22/[address] of her abdomen was performed with no acute findings to explain the pain Blood cultures are negative Peritoneal fluid cx is negative from 12/17/17 UA is negative MRSA PCR negative LIkely source is SBP given that patient had paracentesis during hospitalization and symptoms started right after paracentesis Continue Ceftriaxone day 3 as most likely source of infection is still SBP despite negative paracentesis She has had no fevers since starting ceftriaxone therefore we will continue treatment for SBP for 7 days regardless of cultures will switch to PO cipro at discharge lactate is now normal BP continues to be low therefore will give albumin again today Patient is clinically looking better but with hypotension and tachycardia she is not ready for discharge at this point (2) Hypotension Assessment/Plan: Started after her large volume paracentesis of 6.3 L Patient has been given albumin 100 grams, will receive another 50 grams today as she continues to be hypotensive Likely secondary to severe sepsis and large volume paracentesis She had an echo less than a month ago that showed a normal EF We expect her to be relatively hypotensive secondary to splanchnic dilatation from her cirrhosis but this is more than normal After patient is given albumin will restart PO lasix and aldactone as I am concerned she may start to develop worsening edema (3) Anasarca Assessment/Plan: Secondary to non compliance with medication as patient stopped taking her lasix and aldactone Initially given aldactone and IV lasix with fluid restriction and Na restriction Improved with treatment and down to 1L of O2 LE edema is much improved but pulmonary edema persists SHe is hypotensive therefore will give albumin and then restart PO lasix and aldactone (4) Pulmonary edema Qualifiers: Chronicity: acute Qualified Code(s): J81.0 - Acute pulmonary edema Assessment/Plan: Secondary to non compliance with medication and fluid overload secondary to liver failure with cirrhosis CXR continues to show pulmonary edema and CTA lungs also shows pulmonary edema Echo done last month showed normal EF Down to 1L of O2 Will give albumin and then start PO lasix and aldactone (5) Non compliance w medication regimen Assessment/Plan: Patient counselled about need for compliance with medications She seems to understand and is willing to take lasix and aldactone She needs to show ability to be complaint in order to get transplant of her liver (6) Hypoxia Assessment/Plan: Secondary to pulmonary edema in setting of long standing COPD Patient down to 1L of O2 Restart PO lasix and aldactone after albumin today Weaning O2 but may need home O2 at discharge (7) Hyperkalemia Assessment/Plan: Resolved (8) Hyponatremia Assessment/Plan: Stable - hypervolemic hyponatremia (9) Alcoholic cirrhosis of liver with ascites Assessment/Plan: Patients MELD score is 20 which gives her a 3 month mortality of 19.6% She has history of ascites and encephalopathy On lactulose and rifaximin for hepatic encephalopathy she appears stable Paracentesis performed with 6.3 L removed Patient needs further outpatient follow up and eventual transplant (10) Moderate COPD (chronic obstructive pulmonary disease) Assessment/Plan: Patient has history of COPD and has quit smoking Does not appear to be in exacerbation Placed on duonebs prn Supplemental O2 - Current Meds Current Meds: Current Medications Generic Name Dose Route Start Last Admin Trade Name Freq PRN Reason Stop Dose Admin Acetaminophen 650 mg 12/22/17 10:43 12/22/17 16:09 Tylenol PO 650 mg Q4HR PRN Administration Pain 1 to 4 Bupropion HCl 150 mg 12/22/17 21:00 12/23/17 08:50 Wellbutrin Sr PO Not Given BID RAFFI Enoxaparin Sodium 40 mg 12/23/17 09:00 12/23/17 08:49 Lovenox SUBQ 40 mg DAILY RAFFI Administration Famotidine 20 mg 12/23/17 09:00 12/23/17 08:50 Pepcid PO Not Given DAILY RAFFI Potassium Chloride/Sodium Chloride 1,000 mls @ 100 mls/hr 12/22/17 11:00 11:20 Normal Saline 0.9% W/20 Meq Kcl IV 100 mls/hr .Q10H RAFFI Administration Multivitamins 10 ml/ Sodium 1,010 mls @ 100 mls/hr 12/22/17 13:00 12/23/17 09 :08 Chloride IV 100 mls/hr DAILY RAFFI Administration Thiamine HCl 100 mg/ Folic 101.2 mls @ 50.6 mls/hr 12/22/17 13:00 12/23/17 11 :03 Acid 1 mg/ Sodium Chloride IV 0 mls/hr DAILY RAFFI Infusion Morphine Sulfate 2 mg 12/22/17 10:43 12/23/17 11:00 Morphine IVP 2 mg Q2H PRN Administration Pain 8 to 10 Nicotine 1 patch 12/22/17 13:00 12/23/17 08:48 Nicoderm TOP 1 patch DAILY RAFFI Administration Ondansetron HCl 4 mg 12/22/17 10:43 12/22/17 18:47 Zofran Inj IVP 4 mg Q6HR PRN Administration Nausea / Vomiting Polyethylene Glycol 17 gm 12/23/17 09:00 12/23/17 08:49 Miralax PO Not Given DAILY RAFFI Prochlorperazine Edisylate 10 mg 12/22/17 10:43 12/23/17 00:00 Compazine Inj IVP 10 mg Q6HR PRN Administration Nausea / Vomiting Sertraline HCl 50 mg 12/22/17 11:00 12/23/17 09:13 Zoloft PO Not Given DAILY RAFFI Sodium Chloride 10 ml 12/22/17 10:03 12/22/17 20:55 Normal Saline Flush 0.9% IVP 20 ml PRN PRN Administration NEEDED PER PROVIDER ORDERS Sodium Chloride 10 ml 12/22/17 17:00 12/23/17 09:13 Normal Saline Flush 0.9% IVP Not Given 0100,0900,1700 RAFFI - Lab Result Lab results reviewed: Yes Fish Bone Diagrams: 12/23/17 06:00 12/23/17 06:00 - Diagnostic Imaging Results Diagnostic Imaging Results: Final report reviewed - Additional Planning Condition/Complexity: Guarded My Orders: My Active Orders 12/22/17 12:36 CIWA - AR Score Card [RC] Q4H Q4H Neuro Check [RC] QSHIFT QSHIFT LORazepam INJ [Ativan Inj (Vial)] 1 mg IVP Q30M PRN 12/22/17 13:00 Multivitamin [Infuvite] 10 ml Sodium Chloride 0.9% [Normal Saline 0.9%] 1,000 ml IV DAILY Nicotine 21 mg Patch [Nicoderm] 1 patch TOP DAILY Thiamine Inj [Vitamin B-1 Inj] 100 mg Folic Acid Inj 1 mg Sodium Chloride 0.9 % 100Ml [Normal Saline 0.9% 100Ml] 100 ml IV DAILY 12/23/17 09:00 Enoxaparin [Lovenox] 40 mg SUBQ DAILY Famotidine [Pepcid] 20 mg PO DAILY 12/24/17 05:00 AMYLASE [CHEM] DAILYLAB CBC - COMP BLD CT W/AUTO DIFF [HEME] DAILYLAB COMPREHENSIVE METABOLIC PANEL [CHEM] DAILYLAB LDH - LACTATE DEHYDROGENASE [CHEM] DAILYLAB LIPASE [CHEM] DAILYLAB MAGNESIUM [CHEM] DAILYLAB PHOSPHORUS [CHEM] DAILYLAB 12/25/17 05:00 AMYLASE [CHEM] DAILYLAB CBC - COMP BLD CT W/AUTO DIFF [HEME] DAILYLAB COMPREHENSIVE METABOLIC PANEL [CHEM] DAILYLAB LIPASE [CHEM] DAILYLAB MAGNESIUM [CHEM] DAILYLAB PHOSPHORUS [CHEM] DAILYLAB 12/26/17 05:00 AMYLASE [CHEM] DAILYLAB CBC - COMP BLD CT W/AUTO DIFF [HEME] DAILYLAB COMPREHENSIVE METABOLIC PANEL [CHEM] DAILYLAB LIPASE [CHEM] DAILYLAB MAGNESIUM [CHEM] DAILYLAB PHOSPHORUS [CHEM] DAILYLAB Plan Discussed with:: Patient Time Spent: 31-60 minutes Subjective - Subjective Patient Reports: Feeling Better, Resting Comfortably, Abdominal Pain (Improved) , Dizzines (Improved), Other (She was able to walk to bathroom with minimal weakness. Has a walker and states her strength is good.) Nursing Reports: No Complaints Objective Vital Signs: Vital Signs - 24 hr 12/22/17 12/22/17 12/23/17 15:37 20:23 00:00 Temperature 36.5 C 37.1 C 37.0 C Heart Rate [ 69 70 76 Brachial] Respiratory 16 16 18 Rate Blood Pressure 117/72 137/80 H 141/83 H [Right Brachial artery] O2 Saturation 99 100 100 12/23/17 12/23/17 03:30 08:00 Temperature 36.5 C 37.1 C Heart Rate [ 86 78 Brachial] Respiratory 18 18 Rate Blood Pressure 123/79 138/83 H [Right Brachial artery] O2 Saturation 95 98 Oxygen O2 Source Room air I&O (Last 24 Hrs): Intake and Output Totals x24h 12/21/17 12/22/17 12/23/17 23:59 23:59 23:59 Intake Total 177.969 6252.166 Output Total 1000 Balance -3.820 1259.166 General: Alert, Oriented x3, Cooperative - Results Results: Laboratory Results WBC 7.8 x10^3/uL (4.8-10.8) 12/23/17 06:00 RBC 3.64 10^6/uL (4.20-5.40) L 12/23/17 06:00 Hgb 12.8 g/dL (12.0-16.0) 12/23/17 06:00 Hct 36.8 % (37.0-47.0) L 12/23/17 06:00 MCV 101.2 fL (81.0-99.0) H 12/23/17 06:00 MCH 35.2 pg (27.0-31.0) H 12/23/17 06:00 MCHC 34.8 g/dL (32.0-36.0) 12/23/17 06:00 RDW 12.9 % (12.0-15.0) 12/23/17 06:00 Plt Count 206 10^3/uL (130-450) 12/23/17 06:00 MPV 7.7 fL (7.9-10.8) L 12/23/17 06:00 Neut # (Auto) 6.5 10^3/uL (1.5-6.6) 12/23/17 06:00 Lymph # (Auto) 0.7 10^3/uL (1.5-3.5) L 12/23/17 06:00 [place] # (Auto) 0.5 10^3/uL (0.0-1.0) 12/23/17 06:00 Eos # (Auto) 0.0 10^3/uL (0.0-0.7) 12/23/17 06:00 Baso # (Auto) 0.0 10^3/uL (0.0-0.1) 12/23/17 06:00 Absolute Nucleated RBC 0.00 x10^3/uL 12/23/17 06:00 Nucleated RBC % 0.0 /100WBC 12/23/17 06:00 PT 12.6 secs (9.9-12.6) 12/23/17 06:00 INR 1.1 (0.8-1.2) 12/23/17 06:00 Sodium 134 mmol/L (135-145) L 12/23/17 06:00 Potassium 4.0 mmol/L (3.5-5.0) 12/23/17 06:00 Chloride 100 mmol/L (101-111) L 12/23/17 06:00 Carbon Dioxide 27 mmol/L (21-32) 12/23/17 06:00 Anion Gap 7.0 (6-13) 12/23/17 06:00 BUN < 5 mg/dL (6-20) L 12/23/17 06:00 Creatinine 0.5 mg/dL (0.4-1.0) 12/23/17 06:00 Estimated GFR (MDRD) 133 (>89) 12/23/17 06:00 Glucose 103 mg/dL (70-100) H 12/23/17 06:00 Glycated Hemoglobin 4.7 % (4.6-6.2) 12/23/17 06:00 Estim Average Glucose 88 (70-100) 12/23/17 06:00 Lactic Acid 0.7 mmol/L (0.5-2.2) 12/23/17 06:00 Calcium 8.1 mg/dL (8.5-10.3) L 12/23/17 06:00 Phosphorus 3.2 mg/dL (2.5-4.6) 12/23/17 06:00 Magnesium 2.2 mg/dL (1.7-2.8) 12/23/17 06:00 Total Bilirubin 1.1 mg/dL (0.2-1.0) H 12/23/17 06:00 AST 39 IU/L (10-42) 12/23/17 06:00 ALT 53 IU/L (10-60) 12/23/17 06:00 Alkaline Phosphatase 95 IU/L (42-121) 12/23/17 06:00 Lactate Dehydrogenase 163 IU/L (91-225) 12/23/17 06:00 Total Protein 5.5 g/dL (6.7-8.2) L 12/23/17 06:00 Albumin 3.3 g/dL (3.2-5.5) 12/23/17 06:00 Globulin 2.2 g/dL (2.1-4.2) 12/23/17 06:00 Albumin/Globulin Ratio 1.5 (1.0-2.2) 12/23/17 06:00 Triglycerides 48 mg/dL (-149) 12/23/17 06:00 Cholesterol 140 mg/dL (-199) 12/23/17 06:00 LDL Cholesterol, Calc 53 mg/dL (-129) 12/23/17 06:00 VLDL Cholesterol 10 mg/dL 12/23/17 06:00 HDL Cholesterol 77 mg/dL (60-) 12/23/17 06:00 LDL/HDL Ratio 0.7 (<4.4) 12/23/17 06:00 Cholesterol/HDL Ratio 1.8 (<4.4) 12/23/17 06:00 Amylase 354 U/L (28-100) H 12/23/17 06:00 Lipase 682 U/L (22-51) H 12/23/17 06:00 Vitamin B12 701 pg/mL (180-914) 12/23/17 06:00 Folate 17.31 ng/mL (5.90 - >24.8) 12/23/17 06:00 Urine Color DARK YELLOW 12/22/17 09:40 Urine Clarity CLEAR (CLEAR) 12/22/17 09:40 Urine pH 5.5 PH (5.0-7.5) 12/22/17 09:40 Ur Specific [place] >=1.030 (1.002-1.030) H 12/22/17 09:40 Urine Protein NEGATIVE mg/dL (NEGATIVE) 12/22/17 09:40 Urine Glucose (UA) NEGATIVE mg/dL (NEGATIVE) 12/22/17 09:40 Urine Ketones NEGATIVE mg/dL (NEGATIVE) 12/22/17 09:40 Urine Occult Blood NEGATIVE (NEGATIVE) 12/22/17 09:40 Urine Nitrite NEGATIVE (NEGATIVE) 12/22/17 09:40 Urine Bilirubin NEGATIVE (NEGATIVE) 12/22/17 09:40 Urine Urobilinogen 0.2 (NORMAL) E.U./dL (NORMAL) 12/22/17 09:40 Ur Leukocyte Esterase NEGATIVE (NEGATIVE) 12/22/17 09:40 Ur Microscopic Review NOT INDICATED 12/22/17 09:40 Urine Culture Comments NOT INDICATED 12/22/17 09:40 Urine Opiates Screen POSITIVE (NEGATIVE) H 12/22/17 09:40 Ur Oxycodone Screen NEGATIVE (NEGATIVE) 12/22/17 09:40 Urine Methadone Screen POSITIVE (NEGATIVE) H 12/22/17 09:40 Ur Propoxyphene Screen NEGATIVE (NEGATIVE) 12/22/17 09:40 Ur Barbiturates Screen NEGATIVE (NEGATIVE) 12/22/17 09:40 Ur Tricyclics Screen NEGATIVE (NEGATIVE) 12/22/17 09:40 Ur Phencyclidine Scrn NEGATIVE (NEGATIVE) 12/22/17 09:40 Ur Amphetamine Screen NEGATIVE (NEGATIVE) 12/22/17 09:40 U Methamphetamines Scrn NEGATIVE (NEGATIVE) 12/22/17 09:40 U Benzodiazepines Scrn POSITIVE (NEGATIVE) H 12/22/17 09:40 Urine Cocaine Screen NEGATIVE (NEGATIVE) 12/22/17 09:40 U Cannabinoids Screen NEGATIVE (NEGATIVE) 12/22/17 09:40 Ethyl Alcohol < 5.0 mg/dL 12/22/17 08:12 ABX Reporting Has patient been on IV antibiotics over the past 48 hours?: Yes Current Medications - Current Medications Current Medications: Active Medications Generic Name Dose Route Start Last Admin Trade Name Freq PRN Reason Stop Dose Admin Acetaminophen 650 mg 12/22/17 10:43 12/22/17 16:09 Tylenol PO 650 mg Q4HR PRN Administration Pain 1 to 4 Bupropion HCl 150 mg 12/22/17 21:00 12/23/17 08:50 Wellbutrin Sr PO Not Given BID RAFFI Enoxaparin Sodium 40 mg 12/23/17 09:00 12/23/17 08:49 Lovenox SUBQ 40 mg DAILY RAFFI Administration Famotidine 20 mg 12/23/17 09:00 12/23/17 08:50 Pepcid PO Not Given DAILY RAFFI Potassium Chloride/Sodium Chloride 1,000 mls @ 100 mls/hr 12/22/17 11:00 11:20 Normal Saline 0.9% W/20 Meq Kcl IV 100 mls/hr .Q10H RAFFI Administration Multivitamins 10 ml/ Sodium 1,010 mls @ 100 mls/hr 12/22/17 13:00 12/23/17 09 :08 Chloride IV 100 mls/hr DAILY RAFFI Administration Thiamine HCl 100 mg/ Folic 101.2 mls @ 50.6 mls/hr 12/22/17 13:00 12/23/17 11 :03 Acid 1 mg/ Sodium Chloride IV 0 mls/hr DAILY RAFFI Infusion Lorazepam 1 mg 12/22/17 12:36 Ativan Inj (Vial) IVP Q30M PRN CIWA >8 Protocol Morphine Sulfate 2 mg 12/22/17 10:43 12/23/17 11:00 Morphine IVP 2 mg Q2H PRN Administration Pain 8 to 10 Nicotine 1 patch 12/22/17 13:00 12/23/17 08:48 Nicoderm TOP 1 patch DAILY RAFFI Administration Ondansetron HCl 4 mg 12/22/17 10:43 12/22/17 18:47 Zofran Inj IVP 4 mg Q6HR PRN Administration Nausea / Vomiting Oxycodone HCl 5 mg 12/22/17 10:43 Roxicodone PO Q4HR PRN Pain 5 to 7 Oxycodone HCl 10 mg 12/22/17 10:43 Roxicodone PO Q4HR PRN Pain 8 to 10 Polyethylene Glycol 17 gm 12/23/17 09:00 12/23/17 08:49 Miralax PO Not Given DAILY [facility] Prochlorperazine Edisylate 10 mg 12/22/17 10:43 12/23/17 00:00 Compazine Inj IVP 10 mg Q6HR PRN Administration Nausea / Vomiting Promethazine HCl 25 mg 12/22/17 10:43 Phenergan Inj IM Q6HR PRN Nausea / Vomiting Sertraline HCl 50 mg 12/22/17 11:00 12/23/17 09:13 Zoloft PO Not Given DAILY RAFFI Sodium Chloride 10 ml 12/22/17 10:03 12/22/17 20:55 Normal Saline Flush 0.9% IVP 20 ml PRN PRN Administration NEEDED PER PROVIDER ORDERS Sodium Chloride 10 ml 12/22/17 17:00 12/23/17 09:13 Normal Saline Flush 0.9% IVP Not Given 0100,0900,1700 [facility] Zolpidem Tartrate 5 mg 12/22/17 10:43 Ambien PO QPM PRN Insomnia Bupropion HCl [Bupropion HCl Sr] 150 mg PO BID 07/20/15 Sertraline [Zoloft] 50 mg PO DAILY 11/22/17
[2017-12-23] MEDS: oxyCODONE 5 MG TABLET PO PRN ×3 (15:10→23:42)
[2017-12-23] MEDS: SODIUM CHLORIDE FLUSH 0.9% 10 ML SYRINGE IVP PRN (17:35)
[2017-12-23] MEDS: ONDANSETRON 4 MG/2 ML VIAL IVP PRN (21:46)
[2017-12-24] MEDS: MORPHINE 2 MG/ML SYRINGE IVP PRN ×10 (02:04→23:49)
[2017-12-24] MEDS: SODIUM CHLORIDE FLUSH 0.9% 10 ML SYRINGE IVP SCH ×3 (02:22→16:23)
[2017-12-24] MEDS: oxyCODONE 5 MG TABLET PO PRN ×5 (05:11→22:31)
[2017-12-24 05:28] LABS: BASOPHILS % (AUTO) 0.5 %; EOSINOPHILS # (AUTO) 0.2 10^3/uL (0.0-0.7); EOSINOPHILS % (AUTO) 2.2 %; HGB - HEMOGLOBIN 11.9 g/dL (12.0-16.0); LYMPHOCYTES # (AUTO) 1.1 10^3/uL (1.5-3.5); LYMPHOCYTES % (AUTO) 14.1 %; MEAN CORPUSCULAR HEMOGLOBIN 35.2 pg (27.0-31.0); MEAN CORPUSCULAR HGB CONC 34.7 g/dL (32.0-36.0); MEAN CORPUSCULAR VOLUME 101.2 fL (81.0-99.0); MEAN PLATELET VOLUME 7.9 fL (7.9-10.8); MONOCYTES # (AUTO) 0.8 10^3/uL (0.0-1.0); MONOCYTES % (AUTO) 10.2 %; NEUTROPHILS # (AUTO) 5.7 10^3/uL (1.5-6.6); PLT - PLATELET COUNT 194 10^3/uL (130-450); RED BLOOD COUNT 3.39 10^6/uL (4.20-5.40); WHITE BLOOD COUNT 7.8 x10^3/uL (4.8-10.8)
[2017-12-24 05:49] LABS: ALBUMIN 3.3 g/dL (3.2-5.5); ALBUMIN/GLOBULIN RATIO 1.4 (1.0-2.2); ALKALINE PHOSPHATASE 89 IU/L (42-121); ALT ALANINE AMINOTRANSFERASE 40 IU/L (10-60); AMYLASE 184 U/L (28-100); AST ASPARTATE AMINOTRANSFERASE 28 IU/L (10-42); BILIRUBIN,TOTAL 1.2 mg/dL (0.2-1.0); BUN - BLOOD UREA NITROGEN < 5 mg/dL (6-20); CALCIUM 8.4 mg/dL (8.5-10.3); CARBON DIOXIDE - CO2 28 mmol/L (21-32); CHLORIDE 100 mmol/L (101-111); CREATININE 0.4 mg/dL (0.4-1.0); GFR - MDRD 173 (>89); GLUCOSE 87 mg/dL (70-100); LIPASE 188 U/L (22-51); MAGNESIUM 1.9 mg/dL (1.7-2.8); PHOSPHORUS 2.7 mg/dL (2.5-4.6); SODIUM 135 mmol/L (135-145); TOTAL PROTEIN 5.7 g/dL (6.7-8.2)
[2017-12-24] MEDS: NS W/20 MEQ KCL 1,000 ML IV SCH (08:29)
[2017-12-24] MEDS: POLYETHYLENE GLYCOL 3350 17 GM PACKET PO SCH (08:55)
[2017-12-24] MEDS: NICOTINE 21 MG PATCH TOP SCH (09:36)
[2017-12-24] MEDS: ENOXAPARIN 40 MG/0.4 ML SYRINGE SUBQ SCH (09:36)
[2017-12-24] MEDS: FAMOTIDINE 20 MG TABLET PO SCH (09:36)
[2017-12-24] MEDS: SENNA 8.6 MG TABLET PO SCH (09:37)
[2017-12-24] MEDS: buPROPion SR 150 MG TABLET PO SCH ×2 (09:51→19:32)
[2017-12-24] MEDS: DOCUSATE SODIUM 250 MG CAPSULE PO SCH (09:51)
[2017-12-24] MEDS: SERTRALINE 50 MG TABLET PO SCH (09:52)
[2017-12-24] MEDS: MULTIVITAMIN 10 ML in SODIUM CHLORIDE 0.9% 1,000 ML IV SCH (10:04)
[2017-12-24] MEDS: THIAMINE INJ 100 MG, FOLIC ACID INJ 1 MG in SODIUM CHLORIDE 0.9% 100ML 100 ML IV SCH (10:04)
--- NOTE | 2017-12-24 18:21 | PROVIDER PROGRESS NOTE ---
Assessment/Plan - Problem List (1) Acute alcoholic pancreatitis Qualifiers: Acute pancreatitis complication: no infection or necrosis Qualified Code(s) : K85.20 - Alcohol induced acute pancreatitis without necrosis or infection Assessment/Plan: Continue pain meds and iv fluids. Start clear liquids as she has an appetite. (2) Alcohol abuse Assessment/Plan: Her last alcohol intake was 3 days ago. No signs of withdrawal. (3) Elevated LFTs Assessment/Plan: Improving as pancreatitis improves and Pt off alcohol. (4) Depression Qualifiers: Depression Type: major depressive disorder Active/Remission status: in partial remission Assessment/Plan: Stable on meds (5) Tobacco abuse Assessment/Plan: No urges on Nicotine patch - Current Meds Current Meds: Current Medications Generic Name Dose Route Start Last Admin Trade Name Freq PRN Reason Stop Dose Admin Acetaminophen 650 mg 12/22/17 10:43 12/22/17 16:09 Tylenol PO 650 mg Q4HR PRN Administration Pain 1 to 4 Bupropion HCl 150 mg 12/22/17 21:00 12/24/17 09:51 Wellbutrin Sr PO Not Given BID RAFFI Docusate Sodium 250 - 500 mg 12/24/17 09:00 12/24/17 09:51 Colace 250mg Capsule PO 250 mg DAILY RAFFI Administration Enoxaparin Sodium 40 mg 12/23/17 09:00 12/24/17 09:36 Lovenox SUBQ 40 mg DAILY RAFFI Administration Famotidine 20 mg 12/23/17 09:00 12/24/17 09:36 Pepcid PO 20 mg DAILY RAFFI Administration Potassium Chloride/Sodium Chloride 1,000 mls @ 100 mls/hr 12/22/17 11:00 10:05 Normal Saline 0.9% W/20 Meq Kcl IV 0 mls/hr .Q10H RAFFI Infusion Multivitamins 10 ml/ Sodium 1,010 mls @ 100 mls/hr 12/22/17 13:00 12/24/17 10 :04 Chloride IV 100 mls/hr DAILY RAFFI Administration Thiamine HCl 100 mg/ Folic 101.2 mls @ 50.6 mls/hr 12/22/17 13:00 12/24/17 12 :11 Acid 1 mg/ Sodium Chloride IV Infused DAILY RAFFI Infusion Morphine Sulfate 2 mg 12/22/17 10:43 08/28/18 16:23 Morphine IVP 2 mg Q2H PRN Administration Pain 8 to 10 Nicotine 1 patch 12/22/17 13:00 12/24/17 09:36 Nicoderm TOP 1 patch DAILY RAFFI Administration Ondansetron HCl 4 mg 12/22/17 10:43 12/23/17 21:46 Zofran Inj IVP 4 mg Q6HR PRN Administration Nausea / Vomiting Oxycodone HCl 10 mg 12/22/17 10:43 12/24/17 17:36 Roxicodone PO 10 mg Q4HR PRN Administration Pain 8 to 10 Polyethylene Glycol 17 gm 12/23/17 09:00 12/24/17 08:55 Miralax PO Not Given DAILY [facility] Prochlorperazine Edisylate 10 mg 12/22/17 10:43 12/23/17 00:00 Compazine Inj IVP 10 mg Q6HR PRN Administration Nausea / Vomiting Senna 8.6 - 17.2 mg 12/24/17 09:00 12/24/17 09:37 Senokot PO Not Given DAILY [facility] Sertraline HCl 50 mg 12/22/17 11:00 12/24/17 09:52 Zoloft PO Not Given DAILY [facility] Sodium Chloride 10 ml 12/22/17 10:03 12/23/17 17:35 Normal Saline Flush 0.9% IVP 10 ml PRN PRN Administration NEEDED PER PROVIDER ORDERS Sodium Chloride 10 ml 12/22/17 17:00 12/24/17 16:23 Normal Saline Flush 0.9% IVP 10 ml 0100,0900,1700 RAFFI Administration - Lab Result Fish Bone Diagrams: 12/26/17 05:40 12/26/17 05:40 - Additional Planning My Orders: My Active Orders 12/24/17 Dinner Clear Liquid Diet [DIET] Subjective - Subjective Patient Reports: Feeling Better, Other (Slight enderness RUQ, has appetite) Objective Vital Signs: Vital Signs - 24 hr 12/23/17 12/24/17 12/24/17 23:40 08:00 16:00 Temperature 37.0 C 37.2 C 36.9 C Heart Rate [ 79 74 70 Brachial] Respiratory 16 17 16 Rate Blood Pressure 140/93 H 141/84 H 144/93 H [Right Brachial artery] O2 Saturation 99 99 100 Oxygen O2 Source Room air I&O (Last 24 Hrs): Intake and Output Totals x24h 12/22/17 12/23/17 12/24/17 23:59 23:59 23:59 Intake Total 040.177 8598.533 1461.200 Output Total 1000 Balance -3.820 3574.533 1461.200 General: Alert, Oriented x3 HEENT: Mucous membr. moist/pink Neck: Supple, No JVD Neuro: Non Focal Cardiovascular: Regular rate, No murmurs Respiratory: No respiratory distress, Breath sounds nml Abdomen: Other (Tender RUQ, no rebound) Extremities: No edema - Results Results: Laboratory Results WBC 7.8 x10^3/uL (4.8-10.8) 12/24/17 05:03 RBC 3.39 10^6/uL (4.20-5.40) L 12/24/17 05:03 Hgb 11.9 g/dL (12.0-16.0) L 12/24/17 05:03 Hct 34.3 % (37.0-47.0) L 12/24/17 05:03 MCV 101.2 fL (81.0-99.0) H 12/24/17 05:03 MCH 35.2 pg (27.0-31.0) H 12/24/17 05:03 MCHC 34.7 g/dL (32.0-36.0) 12/24/17 05:03 RDW 13.0 % (12.0-15.0) 12/24/17 05:03 Plt Count 194 10^3/uL (130-450) 12/24/17 05:03 MPV 7.9 fL (7.9-10.8) 12/24/17 05:03 Neut # (Auto) 5.7 10^3/uL (1.5-6.6) 12/24/17 05:03 Lymph # (Auto) 1.1 10^3/uL (1.5-3.5) L 12/24/17 05:03 [place] # (Auto) 0.8 10^3/uL (0.0-1.0) 12/24/17 05:03 Eos # (Auto) 0.2 10^3/uL (0.0-0.7) 12/24/17 05:03 Baso # (Auto) 0.0 10^3/uL (0.0-0.1) 12/24/17 05:03 Absolute Nucleated RBC 0.00 x10^3/uL 12/24/17 05:03 Nucleated RBC % 0.0 /100WBC 12/24/17 05:03 PT 12.6 secs (9.9-12.6) 12/23/17 06:00 INR 1.1 (0.8-1.2) 12/23/17 06:00 Sodium 135 mmol/L (135-145) 12/24/17 05:03 Potassium 3.8 mmol/L (3.5-5.0) 12/24/17 05:03 Chloride 100 mmol/L (101-111) L 12/24/17 05:03 Carbon Dioxide 28 mmol/L (21-32) 12/24/17 05:03 Anion Gap 7.0 (6-13) 12/24/17 05:03 BUN < 5 mg/dL (6-20) L 12/24/17 05:03 Creatinine 0.4 mg/dL (0.4-1.0) 12/24/17 05:03 Estimated GFR (MDRD) 173 (>89) 12/24/17 05:03 Glucose 87 mg/dL (70-100) 12/24/17 05:03 Glycated Hemoglobin 4.7 % (4.6-6.2) 12/23/17 06:00 Estim Average Glucose 88 (70-100) 12/23/17 06:00 Lactic Acid 0.7 mmol/L (0.5-2.2) 12/23/17 06:00 Calcium 8.4 mg/dL (8.5-10.3) L 12/24/17 05:03 Phosphorus 2.7 mg/dL (2.5-4.6) 12/24/17 05:03 Magnesium 1.9 mg/dL (1.7-2.8) 12/24/17 05:03 Total Bilirubin 1.2 mg/dL (0.2-1.0) H 12/24/17 05:03 AST 28 IU/L (10-42) 12/24/17 05:03 ALT 40 IU/L (10-60) 12/24/17 05:03 Alkaline Phosphatase 89 IU/L (42-121) 12/24/17 05:03 Lactate Dehydrogenase 166 IU/L (91-225) 12/24/17 05:03 Total Protein 5.7 g/dL (6.7-8.2) L 12/24/17 05:03 Albumin 3.3 g/dL (3.2-5.5) 12/24/17 05:03 Globulin 2.4 g/dL (2.1-4.2) 12/24/17 05:03 Albumin/Globulin Ratio 1.4 (1.0-2.2) 12/24/17 05:03 Triglycerides 48 mg/dL (-149) 12/23/17 06:00 Cholesterol 140 mg/dL (-199) 12/23/17 06:00 LDL Cholesterol, Calc 53 mg/dL (-129) 12/23/17 06:00 VLDL Cholesterol 10 mg/dL 12/23/17 06:00 HDL Cholesterol 77 mg/dL (60-) 12/23/17 06:00 LDL/HDL Ratio 0.7 (<4.4) 12/23/17 06:00 Cholesterol/HDL Ratio 1.8 (<4.4) 12/23/17 06:00 Amylase 184 U/L (28-100) H 12/24/17 05:03 Lipase 188 U/L (22-51) H 12/24/17 05:03 Vitamin B12 701 pg/mL (180-914) 12/23/17 06:00 Folate 17.31 ng/mL (5.90 - >24.8) 12/23/17 06:00 Urine Color DARK YELLOW 12/22/17 09:40 Urine Clarity CLEAR (CLEAR) 12/22/17 09:40 Urine pH 5.5 PH (5.0-7.5) 12/22/17 09:40 Ur Specific [place] >=1.030 (1.002-1.030) H 12/22/17 09:40 Urine Protein NEGATIVE mg/dL (NEGATIVE) 12/22/17 09:40 Urine Glucose (UA) NEGATIVE mg/dL (NEGATIVE) 12/22/17 09:40 Urine Ketones NEGATIVE mg/dL (NEGATIVE) 12/22/17 09:40 Urine Occult Blood NEGATIVE (NEGATIVE) 12/22/17 09:40 Urine Nitrite NEGATIVE (NEGATIVE) 12/22/17 09:40 Urine Bilirubin NEGATIVE (NEGATIVE) 12/22/17 09:40 Urine Urobilinogen 0.2 (NORMAL) E.U./dL (NORMAL) 12/22/17 09:40 Ur Leukocyte Esterase NEGATIVE (NEGATIVE) 12/22/17 09:40 Ur Microscopic Review NOT INDICATED 12/22/17 09:40 Urine Culture Comments NOT INDICATED 12/22/17 09:40 Urine Opiates Screen POSITIVE (NEGATIVE) H 12/22/17 09:40 Ur Oxycodone Screen NEGATIVE (NEGATIVE) 12/22/17 09:40 Urine Methadone Screen POSITIVE (NEGATIVE) H 12/22/17 09:40 Ur Propoxyphene Screen NEGATIVE (NEGATIVE) 12/22/17 09:40 Ur Barbiturates Screen NEGATIVE (NEGATIVE) 12/22/17 09:40 Ur Tricyclics Screen NEGATIVE (NEGATIVE) 12/22/17 09:40 Ur Phencyclidine Scrn NEGATIVE (NEGATIVE) 12/22/17 09:40 Ur Amphetamine Screen NEGATIVE (NEGATIVE) 12/22/17 09:40 U Methamphetamines Scrn NEGATIVE (NEGATIVE) 12/22/17 09:40 U Benzodiazepines Scrn POSITIVE (NEGATIVE) H 12/22/17 09:40 Urine Cocaine Screen NEGATIVE (NEGATIVE) 12/22/17 09:40 U Cannabinoids Screen NEGATIVE (NEGATIVE) 12/22/17 09:40 Ethyl Alcohol < 5.0 mg/dL 12/22/17 08:12
[2017-12-24] MEDS: SODIUM CHLORIDE FLUSH 0.9% 10 ML SYRINGE IVP PRN ×2 (19:18→20:42)
[2017-12-25] MEDS: SODIUM CHLORIDE FLUSH 0.9% 10 ML SYRINGE IVP SCH ×3 (03:13→16:11)
[2017-12-25] MEDS: oxyCODONE 5 MG TABLET PO PRN ×4 (03:48→15:57)
[2017-12-25] MEDS: MORPHINE 2 MG/ML SYRINGE IVP PRN ×6 (03:48→22:09)
[2017-12-25 05:28] LABS: BASOPHILS # (AUTO) 0.1 10^3/uL (0.0-0.1); BASOPHILS % (AUTO) 0.9 %; EOSINOPHILS # (AUTO) 0.3 10^3/uL (0.0-0.7); EOSINOPHILS % (AUTO) 4.6 %; HGB - HEMOGLOBIN 12.1 g/dL (12.0-16.0); LYMPHOCYTES # (AUTO) 1.1 10^3/uL (1.5-3.5); LYMPHOCYTES % (AUTO) 17.9 %; MEAN CORPUSCULAR HEMOGLOBIN 35.4 pg (27.0-31.0); MEAN CORPUSCULAR HGB CONC 34.9 g/dL (32.0-36.0); MEAN CORPUSCULAR VOLUME 101.5 fL (81.0-99.0); MEAN PLATELET VOLUME 7.7 fL (7.9-10.8); MONOCYTES # (AUTO) 0.7 10^3/uL (0.0-1.0); MONOCYTES % (AUTO) 11.3 %; NEUTROPHILS # (AUTO) 3.9 10^3/uL (1.5-6.6); NEUTROPHILS % (AUTO) 65.3 %; PLT - PLATELET COUNT 257 10^3/uL (130-450); RED BLOOD COUNT 3.43 10^6/uL (4.20-5.40); RED CELL DISTRIBUTION WIDTH 12.9 % (12.0-15.0); WHITE BLOOD COUNT 5.9 x10^3/uL (4.8-10.8)
[2017-12-25 05:51] LABS: ALBUMIN 3.4 g/dL (3.2-5.5); ALBUMIN/GLOBULIN RATIO 1.3 (1.0-2.2); ALKALINE PHOSPHATASE 86 IU/L (42-121); ALT ALANINE AMINOTRANSFERASE 34 IU/L (10-60); AMYLASE 85 U/L (28-100); AST ASPARTATE AMINOTRANSFERASE 20 IU/L (10-42); BILIRUBIN,TOTAL 1.2 mg/dL (0.2-1.0); BUN - BLOOD UREA NITROGEN < 5 mg/dL (6-20); CALCIUM 8.1 mg/dL (8.5-10.3); CARBON DIOXIDE - CO2 27 mmol/L (21-32); CHLORIDE 99 mmol/L (101-111); CREATININE 0.4 mg/dL (0.4-1.0); GFR - MDRD 173 (>89); GLUCOSE 86 mg/dL (70-100); LIPASE 97 U/L (22-51); MAGNESIUM 1.8 mg/dL (1.7-2.8); PHOSPHORUS 3.3 mg/dL (2.5-4.6); SODIUM 136 mmol/L (135-145); TOTAL PROTEIN 6.1 g/dL (6.7-8.2)
[2017-12-25] MEDS: NS W/20 MEQ KCL 1,000 ML IV SCH ×4 (08:49→19:11)
[2017-12-25] MEDS: buPROPion SR 150 MG TABLET PO SCH ×2 (09:21→22:09)
[2017-12-25] MEDS: SERTRALINE 50 MG TABLET PO SCH (09:21)
[2017-12-25] MEDS: SENNA 8.6 MG TABLET PO SCH (09:22)
[2017-12-25] MEDS: DOCUSATE SODIUM 250 MG CAPSULE PO SCH (10:02)
[2017-12-25] MEDS: POLYETHYLENE GLYCOL 3350 17 GM PACKET PO SCH (10:02)
[2017-12-25] MEDS: ENOXAPARIN 40 MG/0.4 ML SYRINGE SUBQ SCH (10:02)
[2017-12-25] MEDS: FAMOTIDINE 20 MG TABLET PO SCH (10:02)
[2017-12-25] MEDS: NICOTINE 21 MG PATCH TOP SCH (10:03)
[2017-12-25] MEDS: SODIUM CHLORIDE FLUSH 0.9% 10 ML SYRINGE IVP PRN ×2 (19:08→22:10)
--- NOTE | 2017-12-25 19:18 | PROVIDER PROGRESS NOTE ---
Assessment/Plan - Problem List (1) Acute alcoholic pancreatitis Qualifiers: Acute pancreatitis complication: no infection or necrosis Qualified Code(s) : K85.20 - Alcohol induced acute pancreatitis without necrosis or infection Assessment/Plan: Pt advancing diet with tolerable pain, on meds. Poss DCh tomorrow Monitor labs daily. (2) Alcohol abuse Assessment/Plan: Stable (3) Elevated LFTs Assessment/Plan: Resolving (4) Depression Qualifiers: Depression Type: major depressive disorder Active/Remission status: in partial remission Assessment/Plan: Stable (5) Tobacco abuse Assessment/Plan: Stable on Nicotine patch - Current Meds Current Meds: Current Medications Generic Name Dose Route Start Last Admin Trade Name Freq PRN Reason Stop Dose Admin Acetaminophen 650 mg 12/22/17 10:43 12/22/17 16:09 Tylenol PO 650 mg Q4HR PRN Administration Pain 1 to 4 Bupropion HCl 150 mg 12/22/17 21:00 12/25/17 09:21 Wellbutrin Sr PO Not Given BID RAFFI Docusate Sodium 250 - 500 mg 12/24/17 09:00 12/25/17 10:02 Colace 250mg Capsule PO 250 mg DAILY RAFFI Administration Enoxaparin Sodium 40 mg 12/23/17 09:00 12/25/17 10:02 Lovenox SUBQ 40 mg DAILY RAFFI Administration Famotidine 20 mg 12/23/17 09:00 12/25/17 10:02 Pepcid PO 20 mg DAILY RAFFI Administration Potassium Chloride/Sodium Chloride 1,000 mls @ 100 mls/hr 12/22/17 11:00 19:11 Normal Saline 0.9% W/20 Meq Kcl IV 100 mls/hr .Q10H RAFFI Administration Morphine Sulfate 2 mg 12/22/17 10:43 12/25/17 19:08 Morphine IVP 2 mg Q2H PRN Administration Pain 8 to 10 Nicotine 1 patch 12/22/17 13:00 12/25/17 10:03 Nicoderm TOP 1 patch DAILY RAFFI Administration Ondansetron HCl 4 mg 12/22/17 10:43 12/23/17 21:46 Zofran Inj IVP 4 mg Q6HR PRN Administration Nausea / Vomiting Oxycodone HCl 10 mg 12/22/17 10:43 12/25/17 15:57 Roxicodone PO 10 mg Q4HR PRN Administration Pain 8 to 10 Polyethylene Glycol 17 gm 12/23/17 09:00 12/25/17 10:02 Miralax PO 17 gm DAILY RAFFI Administration Prochlorperazine Edisylate 10 mg 12/22/17 10:43 12/23/17 00:00 Compazine Inj IVP 10 mg Q6HR PRN Administration Nausea / Vomiting Senna 8.6 - 17.2 mg 12/24/17 09:00 12/25/17 09:22 Senokot PO Not Given DAILY RAFFI Sertraline HCl 50 mg 12/22/17 11:00 12/25/17 09:21 Zoloft PO Not Given DAILY RAFFI Sodium Chloride 10 ml 12/22/17 10:03 12/25/17 19:08 Normal Saline Flush 0.9% IVP 10 ml PRN PRN Administration NEEDED PER PROVIDER ORDERS Sodium Chloride 10 ml 12/22/17 17:00 12/25/17 16:11 Normal Saline Flush 0.9% IVP Not Given 0100,0900,1700 RAFFI - Lab Result Fish Bone Diagrams: 12/26/17 05:40 12/26/17 05:40 - Additional Planning My Orders: My Active Orders 12/25/17 14:12 Nutrition Consult [CONS] Routine 12/25/17 Dinner DIET [Soft (Low Fiber) Diet] [DIET] Subjective - Subjective Patient Reports: Feeling Better, Other (After a walk in hallway, her abd pain increased. No BM for 4 days but is passing flatus.) Objective Vital Signs: Vital Signs - 24 hr 12/25/17 12/25/17 12/25/17 00:00 08:00 15:40 Temperature 36.6 C 37.0 C 37.2 C Heart Rate [ 81 80 60 Brachial] Respiratory 18 18 16 Rate Blood Pressure 143/89 H 119/72 [Right Brachial artery] O2 Saturation 98 97 100 Oxygen O2 Source Room air I&O (Last 24 Hrs): Intake and Output Totals x24h 12/23/17 12/24/17 12/25/17 23:59 23:59 23:59 Intake Total 3574.533 2031.200 4046.666 Balance 3574.533 2031.200 4046.666 General: Alert, Oriented x3 HEENT: Mucous membr. moist/pink Neck: Supple, No JVD Neuro: Non Focal Cardiovascular: Regular rate, No murmurs Respiratory: No respiratory distress Abdomen: Other (Decreased bowel sounds and firm, but no tenderness, guarding or rebound.) Extremities: No edema - Results Results: Laboratory Results WBC 5.9 x10^3/uL (4.8-10.8) 12/25/17 05:00 RBC 3.43 10^6/uL (4.20-5.40) L 12/25/17 05:00 Hgb 12.1 g/dL (12.0-16.0) 12/25/17 05:00 Hct 34.8 % (37.0-47.0) L 12/25/17 05:00 MCV 101.5 fL (81.0-99.0) H 12/25/17 05:00 MCH 35.4 pg (27.0-31.0) H 12/25/17 05:00 MCHC 34.9 g/dL (32.0-36.0) 12/25/17 05:00 RDW 12.9 % (12.0-15.0) 12/25/17 05:00 Plt Count 257 10^3/uL (130-450) 12/25/17 05:00 MPV 7.7 fL (7.9-10.8) L 12/25/17 05:00 Neut # (Auto) 3.9 10^3/uL (1.5-6.6) 12/25/17 05:00 Lymph # (Auto) 1.1 10^3/uL (1.5-3.5) L 12/25/17 05:00 [place] # (Auto) 0.7 10^3/uL (0.0-1.0) 12/25/17 05:00 Eos # (Auto) 0.3 10^3/uL (0.0-0.7) 12/25/17 05:00 Baso # (Auto) 0.1 10^3/uL (0.0-0.1) 12/25/17 05:00 Absolute Nucleated RBC 0.00 x10^3/uL 12/25/17 05:00 Nucleated RBC % 0.1 /100WBC 12/25/17 05:00 PT 12.6 secs (9.9-12.6) 12/23/17 06:00 INR 1.1 (0.8-1.2) 12/23/17 06:00 Sodium 136 mmol/L (135-145) 12/25/17 05:00 Potassium 3.3 mmol/L (3.5-5.0) L 12/25/17 05:00 Chloride 99 mmol/L (101-111) L 12/25/17 05:00 Carbon Dioxide 27 mmol/L (21-32) 12/25/17 05:00 Anion Gap 10.0 (6-13) 12/25/17 05:00 BUN < 5 mg/dL (6-20) L 12/25/17 05:00 Creatinine 0.4 mg/dL (0.4-1.0) 12/25/17 05:00 Estimated GFR (MDRD) 173 (>89) 12/25/17 05:00 Glucose 86 mg/dL (70-100) 12/25/17 05:00 Glycated Hemoglobin 4.7 % (4.6-6.2) 12/23/17 06:00 Estim Average Glucose 88 (70-100) 12/23/17 06:00 Lactic Acid 0.7 mmol/L (0.5-2.2) 12/23/17 06:00 Calcium 8.1 mg/dL (8.5-10.3) L 12/25/17 05:00 Phosphorus 3.3 mg/dL (2.5-4.6) 12/25/17 05:00 Magnesium 1.8 mg/dL (1.7-2.8) 12/25/17 05:00 Total Bilirubin 1.2 mg/dL (0.2-1.0) H 12/25/17 05:00 AST 20 IU/L (10-42) 12/25/17 05:00 ALT 34 IU/L (10-60) 12/25/17 05:00 Alkaline Phosphatase 86 IU/L (42-121) 12/25/17 05:00 Lactate Dehydrogenase 166 IU/L (91-225) 12/24/17 05:03 Total Protein 6.1 g/dL (6.7-8.2) L 12/25/17 05:00 Albumin 3.4 g/dL (3.2-5.5) 12/25/17 05:00 Globulin 2.7 g/dL (2.1-4.2) 12/25/17 05:00 Albumin/Globulin Ratio 1.3 (1.0-2.2) 12/25/17 05:00 Triglycerides 48 mg/dL (-149) 12/23/17 06:00 Cholesterol 140 mg/dL (-199) 12/23/17 06:00 LDL Cholesterol, Calc 53 mg/dL (-129) 12/23/17 06:00 VLDL Cholesterol 10 mg/dL 12/23/17 06:00 HDL Cholesterol 77 mg/dL (60-) 12/23/17 06:00 LDL/HDL Ratio 0.7 (<4.4) 12/23/17 06:00 Cholesterol/HDL Ratio 1.8 (<4.4) 12/23/17 06:00 Amylase 85 U/L (28-100) 12/25/17 05:00 Lipase 97 U/L (22-51) H 12/25/17 05:00 Vitamin B12 701 pg/mL (180-914) 12/23/17 06:00 Folate 17.31 ng/mL (5.90 - >24.8) 12/23/17 06:00 Urine Color DARK YELLOW 12/22/17 09:40 Urine Clarity CLEAR (CLEAR) 12/22/17 09:40 Urine pH 5.5 PH (5.0-7.5) 12/22/17 09:40 Ur Specific [place] >=1.030 (1.002-1.030) H 12/22/17 09:40 Urine Protein NEGATIVE mg/dL (NEGATIVE) 12/22/17 09:40 Urine Glucose (UA) NEGATIVE mg/dL (NEGATIVE) 12/22/17 09:40 Urine Ketones NEGATIVE mg/dL (NEGATIVE) 12/22/17 09:40 Urine Occult Blood NEGATIVE (NEGATIVE) 12/22/17 09:40 Urine Nitrite NEGATIVE (NEGATIVE) 12/22/17 09:40 Urine Bilirubin NEGATIVE (NEGATIVE) 12/22/17 09:40 Urine Urobilinogen 0.2 (NORMAL) E.U./dL (NORMAL) 12/22/17 09:40 Ur Leukocyte Esterase NEGATIVE (NEGATIVE) 12/22/17 09:40 Ur Microscopic Review NOT INDICATED 12/22/17 09:40 Urine Culture Comments NOT INDICATED 12/22/17 09:40 Urine Opiates Screen POSITIVE (NEGATIVE) H 12/22/17 09:40 Ur Oxycodone Screen NEGATIVE (NEGATIVE) 12/22/17 09:40 Urine Methadone Screen POSITIVE (NEGATIVE) H 12/22/17 09:40 Ur Propoxyphene Screen NEGATIVE (NEGATIVE) 12/22/17 09:40 Ur Barbiturates Screen NEGATIVE (NEGATIVE) 12/22/17 09:40 Ur Tricyclics Screen NEGATIVE (NEGATIVE) 12/22/17 09:40 Ur Phencyclidine Scrn NEGATIVE (NEGATIVE) 12/22/17 09:40 Ur Amphetamine Screen NEGATIVE (NEGATIVE) 12/22/17 09:40 U Methamphetamines Scrn NEGATIVE (NEGATIVE) 12/22/17 09:40 U Benzodiazepines Scrn POSITIVE (NEGATIVE) H 12/22/17 09:40 Urine Cocaine Screen NEGATIVE (NEGATIVE) 12/22/17 09:40 U Cannabinoids Screen NEGATIVE (NEGATIVE) 12/22/17 09:40 Ethyl Alcohol < 5.0 mg/dL 12/22/17 08:12
[2017-12-26] MEDS: oxyCODONE 5 MG TABLET PO PRN ×4 (00:08→14:46)
[2017-12-26] MEDS: SODIUM CHLORIDE FLUSH 0.9% 10 ML SYRINGE IVP SCH ×2 (01:30→08:30)
[2017-12-26] MEDS: MORPHINE 2 MG/ML SYRINGE IVP PRN ×2 (02:00→08:18)
[2017-12-26 06:03] LABS: BASOPHILS # (AUTO) 0.1 10^3/uL (0.0-0.1); BASOPHILS % (AUTO) 1.1 %; EOSINOPHILS # (AUTO) 0.2 10^3/uL (0.0-0.7); EOSINOPHILS % (AUTO) 4.7 %; HGB - HEMOGLOBIN 12.1 g/dL (12.0-16.0); LYMPHOCYTES # (AUTO) 1.4 10^3/uL (1.5-3.5); LYMPHOCYTES % (AUTO) 28.6 %; MEAN CORPUSCULAR HEMOGLOBIN 35.9 pg (27.0-31.0); MEAN CORPUSCULAR HGB CONC 35.6 g/dL (32.0-36.0); MEAN CORPUSCULAR VOLUME 100.7 fL (81.0-99.0); MEAN PLATELET VOLUME 7.2 fL (7.9-10.8); MONOCYTES # (AUTO) 0.8 10^3/uL (0.0-1.0); MONOCYTES % (AUTO) 15.9 %; NEUTROPHILS # (AUTO) 2.5 10^3/uL (1.5-6.6); NEUTROPHILS % (AUTO) 49.7 %; PLT - PLATELET COUNT 304 10^3/uL (130-450); RED BLOOD COUNT 3.39 10^6/uL (4.20-5.40); RED CELL DISTRIBUTION WIDTH 12.8 % (12.0-15.0); WHITE BLOOD COUNT 5.1 x10^3/uL (4.8-10.8)
[2017-12-26] MEDS: NS W/20 MEQ KCL 1,000 ML IV SCH (06:19)
[2017-12-26 06:20] LABS: ALBUMIN 3.1 g/dL (3.2-5.5); ALBUMIN/GLOBULIN RATIO 1.1 (1.0-2.2); ALKALINE PHOSPHATASE 88 IU/L (42-121); ALT ALANINE AMINOTRANSFERASE 28 IU/L (10-60); AMYLASE 83 U/L (28-100); AST ASPARTATE AMINOTRANSFERASE 18 IU/L (10-42); BILIRUBIN,TOTAL 0.7 mg/dL (0.2-1.0); BUN - BLOOD UREA NITROGEN < 5 mg/dL (6-20); CALCIUM 8.7 mg/dL (8.5-10.3); CARBON DIOXIDE - CO2 29 mmol/L (21-32); CHLORIDE 103 mmol/L (101-111); CREATININE 0.5 mg/dL (0.4-1.0); GFR - MDRD 133 (>89); GLUCOSE 120 mg/dL (70-100); LIPASE 133 U/L (22-51); MAGNESIUM 1.9 mg/dL (1.7-2.8); PHOSPHORUS 3.3 mg/dL (2.5-4.6); SODIUM 140 mmol/L (135-145); TOTAL PROTEIN 5.8 g/dL (6.7-8.2)
[2017-12-26 07:54] VITALS: BP 135/81
[2017-12-26] MEDS: DOCUSATE SODIUM 250 MG CAPSULE PO SCH (08:24)
[2017-12-26] MEDS: FAMOTIDINE 20 MG TABLET PO SCH (08:24)
[2017-12-26] MEDS: POLYETHYLENE GLYCOL 3350 17 GM PACKET PO SCH (08:25)
[2017-12-26] MEDS: SENNA 8.6 MG TABLET PO SCH (08:25)
[2017-12-26] MEDS: NICOTINE 21 MG PATCH TOP SCH (08:25)
[2017-12-26] MEDS: ENOXAPARIN 40 MG/0.4 ML SYRINGE SUBQ SCH (08:29)
[2017-12-26] MEDS: SERTRALINE 50 MG TABLET PO SCH (08:30)
[2017-12-26] MEDS: buPROPion SR 150 MG TABLET PO SCH (08:30)
--- NOTE | 2017-12-26 11:33 | Discharge Plan ---
Discharge Plan Disposition: 01 Home, Self Care Condition: Stable Prescriptions: oxyCODONE [Roxicodone] 5 mg PO Q8HR PRN #20 tablet PRN Reason: Severe Pain Diet: Regular Activity Restrictions: Activity as Tolerated Shower Restrictions: No Driving Restrictions: No Instruction Topics: Pancreatitis Acute Dc, Pancreatitis Chronic Dc Additional Instructions or Follow Up instructions: Resume any pre-hospital medications that you were on. A pain medication prescription has been ordered for you. If you need refills, see your doctor. You should refrain from alcohol binge drinking. Drink responsibly or do not drink alcohol at all. See your Primary Care Provider in 1-2 weeks in follow-up. You may need a Data Analytics Analyst for follow-ups of the pancreas. Return to the ER if you have new or worsening symptoms. No Smoking: If you smoke, Please STOP! Call for help. Follow-up with: Fiordaliza Mckeon DO [Primary Care Provider] -
--- NOTE | 2017-12-29 02:27 | DISCHARGE SUMMARY ---
Physician: Elizabeth Hernandez MD DATE OF ADMISSION: 12/22/2017 DATE OF DISCHARGE: 12/26/2017 HISTORY OF PRESENT ILLNESS: This is a 47-year-old white female with a history of severe depression, remote suicide attempt at the age of 18, history of alcohol abuse, who recently has been increasing her alcohol intake as a way to deal with a divorce, and the took the 14-year-old and 16-year-old children with him. The patient awoke with abdominal pain that got worse throughout the day, started radiating through to the back, and was associated with nausea and vomiting. She presented to the emergency room when the pain was 10/10 and she was curled in a position. She was found to have elevation of amylase and lipase and treated for acute pancreatitis. HOSPITAL COURSE AND DISCHARGE DIAGNOSES 1. Acute alcoholic pancreatitis. The admission labs showed a lipase of 830. With bowel rest, IV hydration, and pain medications and antiemetics, she had lipase down to 682, 188, and then 133 on the day of discharge. Her diet order went from n.p.o. to clear liquids, and she was finally able to tolerate soft food on the day of discharge. She was discharged home with several tablets of oxycodone for pain control. 2. Alcohol abuse. The patient reported drinking daily, 4 cans of 40-fluid- ounce beer. She does not use hard liquor and reports that this alcohol intake was in response to going through the rough divorce. She did not go through alcoholic DTs while here. 3. Elevated liver function tests. Her admission labs showed an AST of 68, ALT 77, and these normalized by the following day. 4. Depression. The patient was on Zoloft and bupropion for depression, and she did not want to take these while here. She appeared to be very interested in quitting alcohol, learning about appropriate nutrition to prevent pancreatitis attacks in the future, and exhibited no signs of depression or any suicidal ideations while here. 5. Tobacco abuse. The patient was on a nicotine patch to suppress nicotine urges while here. LABORATORY STUDIES AND IMAGING: The patient had an abdominal ultrasound as well as abdomen and pelvis CT. These showed the gallbladder to be distended but with no gallstones. The kidneys were unremarkable. There was a complex left upper quadrant cystic mass, which could have been a pancreatic pseudocyst. Fatty liver was seen, and the CT scan confirmed pancreatitis. ALLERGIES: NONE. MEDICATIONS AT DISCHARGE 1. Oxycodone 5 mg t.i.d. p.r.n.; 20 tablets were prescribed. 2. Bupropion 150 mg b.i.d. 3. Zoloft 50 mg daily. PHYSICAL EXAMINATION AT DISCHARGE VITAL SIGNS: Stable blood pressure 135/81, pulse of 61 in sinus rhythm, afebrile, room air saturation 98%. HEENT: Unremarkable. NECK: Without JVD or carotid bruits. CHEST: Clear. HEART: Sounds normal. ABDOMEN: Soft, tense but not tender, with hyperactive bowel sounds. No guarding or rebound. EXTREMITIES: Without edema. NEUROLOGIC: Intact. No asterixis. FOLLOWUP: The patient was advised to see her PCP in 1-2 weeks in followup and possibly a die forger for followup of the pancreas if needed. CODE STATUS: FULL CODE. TIME REQUIRED TO COMPLETE THIS ENTIRE DISCHARGE, CHART REVIEW, AND MEDICATION PRESCRIPTIONS: 30 minutes. cc: Fiordaliza Mckeon DO TD: 12/29/2017 00:21 [email or web address]
== END 2017-12-26 14:50 | disposition home or self-care (01) | DRG 439 ==
LOC: ED 07:48 → SUPCPDRO 07:48 → MS2 10:03
PROVIDERS: ADMIT Internal Medicine; ATTEND Internal Medicine
DX: K85.20 Alcohol induced acute pancreatitis without necrosis or infection (principal); F10.188 Alcohol abuse with other alcohol-induced disorder; R79.89 Other specified abnormal findings of blood chemistry; R73.9 Hyperglycemia, unspecified; F32.9 Major depressive disorder, single episode, unspecified; F17.210 Nicotine dependence, cigarettes, uncomplicated; Z71.6 Tobacco abuse counseling
CPT/HCPCS: 36415; 74177; 76700; 80053; 80061; 80306; 80320; 81001; 81003; 82150; 82607; 82746; 83036; 83605; 83615; 83690; 83721; 83735; 84100; 85025; 85610; 87086; 96365; 96375; 96376; 99284; 99285

== ENCOUNTER 2018-01-31 10:41 | Emergency (ER) | payer OTHER ==
[2018-01-31 11:36] LABS: MUDS CUTOFF CONCENTRATIONS CUTOFF CONC BELOW:
[2018-01-31 11:49] LABS: COCAINE SCREEN URINE NEGATIVE (NEGATIVE); METHAMPHETAMINES SCREEN, URINE POSITIVE (NEGATIVE); OPIATE SCREEN, URINE NEGATIVE (NEGATIVE)
[2018-01-31 11:50] LABS: AMPHETAMINE SCREEN,URINE POSITIVE (NEGATIVE); BENZODIAZEPINES SCREEN, URINE POSITIVE (NEGATIVE); METHADONE SCREEN, URINE NEGATIVE (NEGATIVE); OXYCODONE SCREEN, URINE NEGATIVE (NEGATIVE); PROPOXYPHENE SCREEN, URINE NEGATIVE (NEGATIVE); TRICYCLIC ANTIDEPRESSANT,URINE NEGATIVE (NEGATIVE)
[2018-01-31 11:55] LABS: ACETAMINOPHEN < 10 ug/mL (10-30); ALBUMIN 4.4 g/dL (3.2-5.5); ALBUMIN/GLOBULIN RATIO 1.8 (1.0-2.2); ALKALINE PHOSPHATASE 99 IU/L (42-121); ALT ALANINE AMINOTRANSFERASE 60 IU/L (10-60); AST ASPARTATE AMINOTRANSFERASE 143 IU/L (10-42); BILIRUBIN,TOTAL 1.2 mg/dL (0.2-1.0); BUN - BLOOD UREA NITROGEN 15 mg/dL (6-20); CALCIUM 7.9 mg/dL (8.5-10.3); CARBON DIOXIDE - CO2 16 mmol/L (21-32); CHLORIDE 97 mmol/L (101-111); CREATININE 0.6 mg/dL (0.4-1.0); GFR - MDRD 108 (>89); GLUCOSE 80 mg/dL (70-100); LIPASE 70 U/L (22-51); SALICYLATE < 6.0 mg/dL; SODIUM 131 mmol/L (135-145); TOTAL PROTEIN 6.9 g/dL (6.7-8.2)
[2018-01-31 12:04] LABS: BASOPHILS # (AUTO) 0.1 10^3/uL (0.0-0.1); BASOPHILS % (AUTO) 1.8 %; HGB - HEMOGLOBIN 12.4 g/dL (12.0-16.0); LYMPHOCYTES # (AUTO) 0.6 10^3/uL (1.5-3.5); LYMPHOCYTES % (AUTO) 8.6 %; MEAN CORPUSCULAR HEMOGLOBIN 35.2 pg (27.0-31.0); MEAN CORPUSCULAR HGB CONC 35.1 g/dL (32.0-36.0); MEAN CORPUSCULAR VOLUME 100.5 fL (81.0-99.0); MEAN PLATELET VOLUME 8.2 fL (7.9-10.8); MONOCYTES # (AUTO) 0.3 10^3/uL (0.0-1.0); MONOCYTES % (AUTO) 3.8 %; NEUTROPHILS # (AUTO) 5.7 10^3/uL (1.5-6.6); NEUTROPHILS % (AUTO) 85.8 %; PLT - PLATELET COUNT 172 10^3/uL (130-450); RED BLOOD COUNT 3.52 10^6/uL (4.20-5.40); RED CELL DISTRIBUTION WIDTH 13.2 % (12.0-15.0); WHITE BLOOD COUNT 6.6 x10^3/uL (4.8-10.8)
--- NOTE | 2018-01-31 12:22 | ED Physician Documentation ---
History of Present Illness - Stated complaint Stated Complaint: DETOX - Chief complaint Chief Complaint: General - History obtained from History obtained from: Patient - History of Present Illness Timing: How many days ago (several) Pain level max: 5 Pain level now: 5 Improved by: nothing Worsened by: nothing - Additonal information Additional information: Patient is a 47-year-old female who presents to the emergency department with several complaints. The first is that she states that she had an elective approximately 4 days ago. Has continued vaginal bleeding and cramping. States she is using approximately a pad per day. She also states that she is an alcoholic and has been drinking regularly, would like to discuss going to rehab/detox. She has no fevers, no vomiting. No abdominal pain other than pelvic cramping. No headache or head injury. No seizures. No hallucinations Review of Systems Ten Systems: 10 systems reviewed and negative Constitutional: denies: Fever, Chills Ears: denies: Ear pain Nose: denies: Rhinorrhea / runny nose, Congestion Throat: denies: Sore throat Cardiac: denies: Chest pain / pressure Respiratory: denies: Cough GI: denies: Abdominal Pain, Nausea, Vomiting, Diarrhea Skin: denies: Rash Musculoskeletal: denies: Neck pain, Back pain Neurologic: denies: Headache PD PAST MEDICAL HISTORY - Past Medical History Cardiovascular: None Respiratory: None Neuro: Migraines Endocrine/Autoimmune: None GI: None INSTALLATION TECH: None Psych: Depression, Anxiety Musculoskeletal: Chronic back pain - Past Surgical History Past Surgical History: Yes /INSTALLATION TECH: section - Present Medications Home Medications: Ambulatory Orders Medication Instructions Recorded Confirmed Bupropion HCl [Bupropion HCl Sr] 150 mg PO BID 07/20/15 12/22/17 Sertraline [Zoloft] 50 mg PO DAILY 11/22/17 12/22/17 - Allergies Allergies/Adverse Reactions: Allergies Allergy/AdvReac Type Severity Reaction Status Date / Time No Known Drug Allergies Allergy Verified 01/31/18 10:50 - Social History Does the pt smoke?: No Smoking Status: Never smoker Does the pt drink ETOH?: Yes Does the pt have substance abuse?: No - Immunizations Immunizations are current?: Yes - POLST Patient has POLST: No POLST Status: Full Code PD ED PE NORMAL - Vitals Vital signs reviewed: Yes - General General: Alert and oriented X 3, No acute distress - HEENT HEENT: Moist mucous membranes - Neck Neck: Supple, no meningeal sign - Cardiac Cardiac: RRR, Strong equal pulses - Respiratory Respiratory: No respiratory distress, Clear bilaterally - Abdomen Abdomen: Soft, Non tender, Non distended, Other (no peritoneal signs) - Female Female : Pt declined - Back Back: No spinal TTP - Derm Derm: Warm and dry - Extremities Extremities: No edema - Neuro Neuro: Alert and oriented X 3 Results - Vitals Vitals: Vital Signs - 24 hr 01/31/18 10:43 Temperature 36.1 C L Heart Rate 98 Respiratory 16 Rate Blood Pressure 165/135 H O2 Saturation 100 Oxygen O2 Source Room air - EKG (time done) 1947 Rate: Rate (enter#) (83) Rhythm: NSR [place]: Normal Intervals: Normal OK QRS: Normal Ischemia: Normal ST segments - Labs Labs: Laboratory Tests 01/31/18 01/31/18 01/31/18 11:30 11:34 11:35 WBC 6.6 RBC 3.52 L Hgb 12.4 Hct 35.4 L MCV 100.5 H MCH 35.2 H MCHC 35.1 RDW 13.2 Plt Count 172 MPV 8.2 Neut # (Auto) 5.7 Lymph # (Auto) 0.6 L [place] # (Auto) 0.3 Eos # (Auto) 0.0 Baso # (Auto) 0.1 Absolute Nucleated RBC 0.00 Nucleated RBC % 0.0 Sodium 131 L Potassium 4.3 Chloride 97 L Carbon Dioxide 16 L Anion Gap 18.0 H BUN 15 Creatinine 0.6 Estimated GFR (MDRD) 108 Glucose 80 Calcium 7.9 L Total Bilirubin 1.2 H AST 143 H ALT 60 Alkaline Phosphatase 99 Total Protein 6.9 Albumin 4.4 Globulin 2.5 Albumin/Globulin Ratio 1.8 Lipase 70 H Salicylates < 6.0 Urine Opiates Screen NEGATIVE Ur Oxycodone Screen NEGATIVE Urine Methadone Screen NEGATIVE Ur Propoxyphene Screen NEGATIVE Acetaminophen < 10 L Ur Barbiturates Screen NEGATIVE Ur Tricyclics Screen NEGATIVE Ur Phencyclidine Scrn NEGATIVE Ur Amphetamine Screen POSITIVE H U Methamphetamines Scrn POSITIVE H U Benzodiazepines Scrn POSITIVE H Urine Cocaine Screen NEGATIVE U Cannabinoids Screen NEGATIVE Ethyl Alcohol 181.3 PD MEDICAL DECISION MAKING - ED course Complexity details: reviewed results, re-evaluated patient, considered differential, d/w patient, d/w lean consultant ED course: Patient is a 47-year-old female who presents to the emergency department intoxicated from alcohol and testing positive for methamphetamines. She states that the methamphetamines came from a "vape pen" from kids at the [employer]. She is requesting detox, social work was consulted and is working on detox for the patient. She was given a dose of Librium in the emergency department. She did go out to her car and was accompanied by the nurse, she started to drink from a liquor bottle in the car and stopped when the nurse told her to. Hemoglobin is stable and her vaginal bleeding is decreasing from her recent . Patient began to voice vague suicidal ideation, given her dual diagnosis placement was sought and obtained at [facility], Dr. Taylor Ramires accepts at 2004. COBRA forms complete. This document was made in part using voice recognition software. While efforts are made to proofread this document, sound alike and grammatical errors may occur. - Sepsis Event Vital Signs: Vital Signs - 24 hr 01/31/18 10:43 Temperature 36.1 C L Heart Rate 98 Respiratory 16 Rate Blood Pressure 165/135 H O2 Saturation 100 Oxygen O2 Source Room air Departure - Departure Disposition: 65 Psych Hosp/Unit DC/Xfer Clinical Impression: Alcohol abuse, Methamphetamine abuse, Uterine bleeding, Suicidal ideation Condition: Stable
[2018-01-31] MEDS ORDERED: SODIUM CHLORIDE 0.9% 1,000 ML IV ONE (13:14)
[2018-01-31] MEDS ORDERED: chlordiazePOXIDE 25 MG CAPSULE PO STA ×2 (13:33→16:35)
[2018-01-31] MEDS ORDERED: ONDANSETRON ODT 4 MG TABLET TL STA (13:55)
[2018-01-31] MEDS: SODIUM CHLORIDE 0.9% 1,000 ML IV ONE ×2 (14:21→19:45)
[2018-01-31 22:28] VITALS: BP 138/91
== END 2018-01-31 22:40 ==
LOC: ED 10:41
DX: N93.9 Abnormal uterine and vaginal bleeding, unspecified (principal); F10.10 Alcohol abuse, uncomplicated; F15.10 Other stimulant abuse, uncomplicated; R45.851 Suicidal ideations
CPT/HCPCS: 36415; 80053; 80306; 80307; 80320; 80329; 83690; 84702; 85025; 93005; 96360; 99284; 99285; A9270; Q0162